=== PATIENT | female | born 1970 | race Caucasian/White ===

== ENCOUNTER 2017-06-23 01:02 | Inpatient (IN) | payer OTHER ==
[~2017-06-23] VITALS: Ht 160 cm; Wt 56.7 kg
[~2017-06-23 01:02] MED LIST: ACEBUTCAFT PO; ACET325 PO; ALEVE220 MG PO; ALPR.5 PO; AMIT10 PO; Ativan1 MG PO; CEPH500 PO; CIPR500 PO; CODBUTASA PO; CYCL10 PO; FAMO20 PO; HYDACE5; HYDACE5 PO; HYDACE5325 PO; HYDR1TAB94 PO; HYOS.125; IBUP600 PO; LEVFLO500 PO; LORA.5 PO; MAGCIT300 PO; MIRT30 PO; Mobic15 MG PO; NAPR550 PO; Norco 5-325 Ta1 EACH PO; OXYACE5T PO; PENVK500 PO; PHENA200 PO; PROM25 PO; Pain Relief500 MG PO; Percocet 10-321 EACH PO; Percocet 5-3251 EACH PO; RXCLIN PO; RXNAPNA550 PO; SERT100; SERT100 PO; SERT25 PO; SERT50; TRAZ50; TRIA80TC TOP
[2017-06-23 01:20] LABS: Calcium, Ionized (POC) 0.98 mmol/L (1.10-1.46); Chloride (POC) 111 mmol/L (98-108); Creatinine (POC) 0.8 mg/dL (0.6-1.0); Glucose (ISTAT POC) 166 mg/dL (70-99); Hemoglobin (POC) 10.9 g/dL (12.0-16.0); Potassium (POC) 3.6 mmol/L (3.5-5.5); Sodium (POC) 143 mmol/L (135-148); Total CO2 (POC) 20 mmol/L (21-32)
[2017-06-23 01:28] LABS: BASOPHILS ABSOLUTE AUTO 0.06 K/mm3 (0.00-0.23); BASOPHILS PERCENT AUTO 1 % (0-2); EOSINOPHILS ABSOLUTE AUTO 0.11 K/mm3 (0.00-0.68); EOSINOPHILS PERCENT AUTO 1 % (0-6); Hematocrit 40.4 % (33.0-51.0); Hemoglobin 13.2 g/dL (11.5-16.0); IMMATURE GRAN ABSOLUTE AUTO 0.07 K/mm3 (0.00-0.10); IMMATURE GRAN PERCENT AUTO 1 % (0-1); LYMPHOCYTES ABSOLUTE AUTO 5.01 K/mm3 (0.84-5.20); LYMPHOCYTES PERCENT AUTO 44 % (21-46); MONOCYTES ABSOLUTE AUTO 0.76 K/mm3 (0.16-1.47); MONOCYTES PERCENT AUTO 7 % (4-13); Mean Corpuscular HGB 31.3 pg (26.0-34.0); Mean Corpuscular HGB Conc 32.7 g/dL (31.5-36.5); Mean Corpuscular Volume 96 fL (80-100); Mean Platelet Volume 9.1 fL (9.1-12.4); NEUTROPHILS ABSOLUTE AUTO 5.36 K/mm3 (1.96-9.15); NEUTROPHILS PERCENT AUTO 47 % (41-73); Platelet Count 243 K/mm3 (150-400); RDW Coefficient Variation 14.1 % (11.7-14.2); RDW Standard Deviation 49.7 fL (35.1-46.3); Red Blood Cell Count 4.22 M/mm3 (3.80-5.20); White Blood Cell Count 11.37 K/mm3 (4.00-11.30)
[2017-06-23 01:43] LABS: International Normalized Ratio 1.07; Prothrombin Time Results 11.2 Sec (9.7-11.5)
[2017-06-23 01:44] LABS: Alanine Aminotransfer (ALT/SGP 18 U/L (12-78); Albumin, Blood 2.5 g/dL (3.4-5.0); Alk Phos 84 U/L (50-136); Anion Gap 7 mmol/L (6-16); Aspartate Aminotrans (AST/SGOT 18 U/L (12-37); Bilirubin, Total 0.2 mg/dL (0.1-1.0); Blood Urea Nitrogen 13 mg/dL (8-24); Bun/Creatinine Ratio 17.9 (12.0-20.0); CO2, Blood 23 mmol/L (21-32); Calcium, Blood 6.5 mg/dL (8.5-10.1); Chloride, Blood 116 mmol/L (98-108); Creatinine, Blood 0.73 mg/dL (0.40-1.00); Globulin, Blood 2.5 g/dL (2.2-4.0); Glomerular Filtration Rate >60 (60-); Glucose, Blood 166 mg/dL (70-99); Potassium, Blood 3.8 mmol/L (3.5-5.5); Sodium, Blood 146 mmol/L (136-145); Troponin I 0.218 ng/mL (0.000-0.040)
[2017-06-23] MEDS ORDERED: MELO7.5 PO (02:14)
[2017-06-23] MEDS ORDERED: CLON.5 PO (02:14)
[2017-06-23 05:07] LABS: BASOPHILS ABSOLUTE AUTO 0.06 K/mm3 (0.00-0.23); BASOPHILS PERCENT AUTO 0 % (0-2); EOSINOPHILS ABSOLUTE AUTO 0.03 K/mm3 (0.00-0.68); EOSINOPHILS PERCENT AUTO 0 % (0-6); Hematocrit 40.6 % (33.0-51.0); Hemoglobin 13.2 g/dL (11.5-16.0); IMMATURE GRAN ABSOLUTE AUTO 0.06 K/mm3 (0.00-0.10); IMMATURE GRAN PERCENT AUTO 0 % (0-1); LYMPHOCYTES ABSOLUTE AUTO 2.86 K/mm3 (0.84-5.20); LYMPHOCYTES PERCENT AUTO 21 % (21-46); MONOCYTES ABSOLUTE AUTO 0.47 K/mm3 (0.16-1.47); MONOCYTES PERCENT AUTO 3 % (4-13); Mean Corpuscular HGB 31.1 pg (26.0-34.0); Mean Corpuscular HGB Conc 32.5 g/dL (31.5-36.5); Mean Corpuscular Volume 96 fL (80-100); Mean Platelet Volume 9.4 fL (9.1-12.4); NEUTROPHILS ABSOLUTE AUTO 10.18 K/mm3 (1.96-9.15); NEUTROPHILS PERCENT AUTO 75 % (41-73); Platelet Count 236 K/mm3 (150-400); RDW Coefficient Variation 14.2 % (11.7-14.2); RDW Standard Deviation 50.6 fL (35.1-46.3); Red Blood Cell Count 4.24 M/mm3 (3.80-5.20); White Blood Cell Count 13.66 K/mm3 (4.00-11.30)
[2017-06-23 05:37] LABS: Anion Gap 7 mmol/L (6-16); Blood Urea Nitrogen 16 mg/dL (8-24); CO2, Blood 24 mmol/L (21-32); Calcium, Blood 7.8 mg/dL (8.5-10.1); Chloride, Blood 111 mmol/L (98-108); Glomerular Filtration Rate >60 (60-); Glucose, Blood 102 mg/dL (70-99); Sodium, Blood 142 mmol/L (136-145)
[2017-06-23] MEDS ORDERED: INDERAL XL120 MG PO (08:31)
[2017-06-23] MEDS ORDERED: MAPAP PM CAPLET1 TAB PO (08:31)
[2017-06-23] MEDS ORDERED: PRAZ2 PO (08:32)
[2017-06-23] MEDS ORDERED: Butalbital-Asa1 EAC1 PO (08:33)
[2017-06-24] MEDS ORDERED: ASPI81CH PO (10:12)
[2017-06-24] MEDS ORDERED: ATOR40TA PO (10:13)
[2017-06-24] MEDS ORDERED: CLOP75 PO (10:14)
[2017-06-24] MEDS ORDERED: Lisinopril2.5 MG PO (10:15)
[2017-06-24] MEDS ORDERED: Nicoderm Cq1 EAC1 TOP (10:17)
[2017-06-24] MEDS ORDERED: Lopressor 25 mg25 MG PO (10:18)
== END 2017-06-24 12:00 | disposition home or self-care (01) | DRG 247 ==
LOC: ER 01:02 → ICUW 01:48 → ICUE 02:12 → PCU 15:58
PROVIDERS: Emergency Medicine; Internal Medicine Interventional Cardiology
PROC: 027034Z Dilation of Coronary Artery, One Artery with Drug-eluting Intraluminal Device, Percutaneous Approach (ICD-10-PCS; principal; 2017-06-23)
PROC: 3E0234Z Introduction of Serum, Toxoid and Vaccine into Muscle, Percutaneous Approach (ICD-10-PCS; 2017-06-23)
PROC: 4A023N7 Measurement of Cardiac Sampling and Pressure, Left Heart, Percutaneous Approach (ICD-10-PCS; 2017-06-23)
PROC: B2111ZZ Fluoroscopy of Multiple Coronary Arteries using Low Osmolar Contrast (ICD-10-PCS; 2017-06-23)
DX: I21.19 ST elevation (STEMI) myocardial infarction involving other coronary artery of inferior wall (principal); I48.0 Paroxysmal atrial fibrillation; F17.210 Nicotine dependence, cigarettes, uncomplicated; F32.9 Major depressive disorder, single episode, unspecified; I10 Essential (primary) hypertension; Z23 Encounter for immunization; K58.9 Irritable bowel syndrome, unspecified; F41.9 Anxiety disorder, unspecified; I25.10 Atherosclerotic heart disease of native coronary artery without angina pectoris
CPT/HCPCS: 36415; 80047; 80048; 80053; 84484; 85014; 85025; 85610; 85730; 92978; 93005; 93010; 93306; 93454; 96374; 96375; 99152; 99153; 99285; C1725; C1753; C1760; C1769; C1874; C1894; C9606; J0461; J0610; J1265; J1644; J2060; J2250; J2405; J3010; J7030; Q2038; Q9967

== ENCOUNTER 2017-07-14 23:53 | Emergency (ER) | payer OTHER ==
[~2017-07-14] VITALS: Ht 160 cm; Wt 52.2 kg
[~2017-07-14 23:53] MED LIST changes: +ASPI81CH PO; +ATOR40TA PO; +Butalbital-Asa1 EAC1 PO; +CLON.5 PO; +CLOP75 PO; +INDERAL XL120 MG PO; +Lisinopril2.5 MG PO; +Lopressor 25 mg25 MG PO; +MAPAP PM CAPLET1 TAB PO; +MELO7.5 PO; +Nicoderm Cq1 EAC1 TOP; +PRAZ2 PO
[2017-07-15] MEDS ORDERED: PRAZ2 PO (00:18)
[2017-07-15 00:31] LABS: White Blood Cell Count 9.02 K/mm3 (4.00-11.30)
[2017-07-15 00:32] LABS: BASOPHILS ABSOLUTE AUTO 0.05 K/mm3 (0.00-0.23); BASOPHILS PERCENT AUTO 1 % (0-2); EOSINOPHILS ABSOLUTE AUTO 0.13 K/mm3 (0.00-0.68); EOSINOPHILS PERCENT AUTO 1 % (0-6); Hematocrit 38.2 % (33.0-51.0); Hemoglobin 13.1 g/dL (11.5-16.0); IMMATURE GRAN ABSOLUTE AUTO 0.04 K/mm3 (0.00-0.10); IMMATURE GRAN PERCENT AUTO 0 % (0-1); LYMPHOCYTES ABSOLUTE AUTO 3.09 K/mm3 (0.84-5.20); LYMPHOCYTES PERCENT AUTO 34 % (21-46); MONOCYTES ABSOLUTE AUTO 0.72 K/mm3 (0.16-1.47); MONOCYTES PERCENT AUTO 8 % (4-13); Mean Corpuscular HGB 31.2 pg (26.0-34.0); Mean Corpuscular HGB Conc 34.3 g/dL (31.5-36.5); Mean Corpuscular Volume 91 fL (80-100); Mean Platelet Volume 8.9 fL (9.1-12.4); NEUTROPHILS ABSOLUTE AUTO 4.99 K/mm3 (1.96-9.15); NEUTROPHILS PERCENT AUTO 55 % (41-73); Platelet Count 229 K/mm3 (150-400); RDW Coefficient Variation 13.1 % (11.7-14.2); RDW Standard Deviation 43.9 fL (35.1-46.3)
[2017-07-15 00:46] LABS: Alanine Aminotransfer (ALT/SGP 19 U/L (12-78); Albumin, Blood 3.5 g/dL (3.4-5.0); Alk Phos 111 U/L (50-136); Anion Gap 9 mmol/L (6-16); Aspartate Aminotrans (AST/SGOT 13 U/L (12-37); Bilirubin, Total 0.2 mg/dL (0.1-1.0); Blood Urea Nitrogen 23 mg/dL (8-24); Bun/Creatinine Ratio 34.3 (12.0-20.0); CO2, Blood 25 mmol/L (21-32); Calcium, Blood 8.4 mg/dL (8.5-10.1); Chloride, Blood 103 mmol/L (98-108); Creatinine, Blood 0.67 mg/dL (0.40-1.00); Globulin, Blood 3.4 g/dL (2.2-4.0); Glomerular Filtration Rate >60 (60-); Glucose, Blood 109 mg/dL (70-99); Potassium, Blood 3.5 mmol/L (3.5-5.5); Sodium, Blood 137 mmol/L (136-145); Total Protein, Blood 6.9 g/dL (6.4-8.2); Troponin I <0.015 ng/mL (0.000-0.040)
[2017-07-15] MEDS ORDERED: CLON.5 PO (04:17)
== END 2017-07-15 04:20 | disposition home or self-care (01) ==
LOC: ER 23:53
PROVIDERS: Emergency Medicine
DX: R07.9 Chest pain, unspecified (principal); F41.9 Anxiety disorder, unspecified; F32.9 Major depressive disorder, single episode, unspecified; I25.2 Old myocardial infarction; F17.200 Nicotine dependence, unspecified, uncomplicated; Z88.8 Allergy status to other drugs, medicaments and biological substances; Z79.899 Other long term (current) drug therapy; Z79.82 Long term (current) use of aspirin; Z95.5 Presence of coronary angioplasty implant and graft
CPT/HCPCS: 36415; 71046; 80053; 83690; 83880; 84484; 85025; 93005; 93010; 96361; 96374; 99283; J2405; J7030

== ENCOUNTER 2017-10-27 07:21 | Emergency (ER) | payer OTHER ==
[~2017-10-27] VITALS: Ht 160 cm; Wt 51.3 kg
[2017-10-27] MEDS ORDERED: PRAZ2 PO (08:12)
[2017-10-27] MEDS ORDERED: CYCL10 PO (09:08)
[2017-10-27] MEDS ORDERED: HYDR1TAB94 PO (09:08)
[2017-10-27] MEDS ORDERED: IBUP800 PO (09:08)
== END 2017-10-27 09:39 | disposition home or self-care (01) ==
LOC: ER 07:21
DX: S20.212A Contusion of left front wall of thorax, initial encounter (principal); F32.9 Major depressive disorder, single episode, unspecified; F41.9 Anxiety disorder, unspecified; F17.200 Nicotine dependence, unspecified, uncomplicated; Z88.8 Allergy status to other drugs, medicaments and biological substances; Z79.899 Other long term (current) drug therapy; Z79.82 Long term (current) use of aspirin; W20.8XXA Other cause of strike by thrown, projected or falling object, initial encounter
CPT/HCPCS: 71046; 71100

== ENCOUNTER 2018-01-03 12:26 | Emergency (ER) | payer OTHER ==
[~2018-01-03] VITALS: Ht 160 cm; Wt 49.4 kg
[~2018-01-03 12:26] MED LIST changes: +IBUP800 PO
[2018-01-03 13:05] LABS: BASOPHILS ABSOLUTE AUTO 0.02 K/mm3 (0.00-0.23); BASOPHILS PERCENT AUTO 0 % (0-2); EOSINOPHILS PERCENT AUTO 0 % (0-6); Hematocrit 46.5 % (33.0-51.0); Hemoglobin 16.3 g/dL (11.5-16.0); IMMATURE GRAN ABSOLUTE AUTO 0.04 K/mm3 (0.00-0.10); IMMATURE GRAN PERCENT AUTO 0 % (0-1); LYMPHOCYTES ABSOLUTE AUTO 2.44 K/mm3 (0.84-5.20); LYMPHOCYTES PERCENT AUTO 21 % (21-46); MONOCYTES ABSOLUTE AUTO 0.69 K/mm3 (0.16-1.47); MONOCYTES PERCENT AUTO 6 % (4-13); Mean Corpuscular HGB 31.9 pg (26.0-34.0); Mean Corpuscular HGB Conc 35.1 g/dL (31.5-36.5); Mean Corpuscular Volume 91 fL (80-100); Mean Platelet Volume 9.1 fL (9.1-12.4); NEUTROPHILS ABSOLUTE AUTO 8.52 K/mm3 (1.96-9.15); NEUTROPHILS PERCENT AUTO 73 % (41-73); Platelet Count 312 K/mm3 (150-400); RDW Coefficient Variation 13.2 % (11.7-14.2); RDW Standard Deviation 44.3 fL (35.1-46.3); Red Blood Cell Count 5.11 M/mm3 (3.80-5.20); White Blood Cell Count 11.71 K/mm3 (4.00-11.30)
[2018-01-03] MEDS ORDERED: AMIT25 PO (13:32)
[2018-01-03 13:33] LABS: Troponin I <0.015 ng/mL (0.000-0.040)
[2018-01-03 13:42] LABS: Alanine Aminotransfer (ALT/SGP 20 U/L (12-78); Albumin, Blood 4.4 g/dL (3.4-5.0); Albumin/Globulin Ratio 1.2 (0.8-1.8); Alk Phos 129 U/L (50-136); Anion Gap 17 mmol/L (6-16); Aspartate Aminotrans (AST/SGOT 18 U/L (12-37); Bilirubin, Total 0.5 mg/dL (0.1-1.0); Blood Urea Nitrogen 9 mg/dL (8-24); CO2, Blood 21 mmol/L (21-32); Calcium, Blood 9.7 mg/dL (8.5-10.1); Chloride, Blood 96 mmol/L (98-108); Globulin, Blood 3.7 g/dL (2.2-4.0); Glomerular Filtration Rate >60 (60-); Glucose, Blood 110 mg/dL (70-99); Sodium, Blood 134 mmol/L (136-145); Total Protein, Blood 8.1 g/dL (6.4-8.2)
[2018-01-03] MEDS ORDERED: Zofran4 MG PO (14:40)
[2018-01-04] MEDS ORDERED: SALONPAS PATCH1 EACH (23:21)
[2018-01-04] MEDS ORDERED: LIDO5TO TOP (23:22)
== END 2018-01-03 14:56 | disposition home or self-care (01) ==
LOC: ER 12:26
PROVIDERS: Physician Assistant
DX: A08.4 Viral intestinal infection, unspecified (principal); F41.0 Panic disorder [episodic paroxysmal anxiety]; I25.2 Old myocardial infarction; F32.9 Major depressive disorder, single episode, unspecified; F17.200 Nicotine dependence, unspecified, uncomplicated; Z79.899 Other long term (current) drug therapy; Z79.82 Long term (current) use of aspirin; Z79.01 Long term (current) use of anticoagulants
CPT/HCPCS: 71046; 80053; 84484; 85025; 93005; 93010; 96361; 96374; 96375; 96376; 99285-25; J2060; J2405; J7030

== ENCOUNTER 2018-01-04 22:56 | Inpatient (IN) | payer OTHER ==
[~2018-01-04] VITALS: Ht 160 cm; Wt 51.1 kg
[~2018-01-04 22:56] MED LIST changes: +AMIT25 PO; +Zofran4 MG PO
[2018-01-04] MEDS ORDERED: SALONPAS PATCH1 EACH (23:21)
[2018-01-04] MEDS ORDERED: LIDO5TO TOP (23:22)
[2018-01-04 23:47] LABS: BASOPHILS ABSOLUTE AUTO 0.03 K/mm3 (0.00-0.23); BASOPHILS PERCENT AUTO 0 % (0-2); EOSINOPHILS ABSOLUTE AUTO 0.03 K/mm3 (0.00-0.68); EOSINOPHILS PERCENT AUTO 0 % (0-6); Hematocrit 35.4 % (33.0-51.0); Hemoglobin 12.3 g/dL (11.5-16.0); IMMATURE GRAN ABSOLUTE AUTO 0.04 K/mm3 (0.00-0.10); IMMATURE GRAN PERCENT AUTO 1 % (0-1); LYMPHOCYTES ABSOLUTE AUTO 3.07 K/mm3 (0.84-5.20); LYMPHOCYTES PERCENT AUTO 39 % (21-46); MONOCYTES ABSOLUTE AUTO 0.57 K/mm3 (0.16-1.47); MONOCYTES PERCENT AUTO 7 % (4-13); Mean Corpuscular HGB 32.5 pg (26.0-34.0); Mean Corpuscular HGB Conc 34.7 g/dL (31.5-36.5); Mean Corpuscular Volume 94 fL (80-100); Mean Platelet Volume 9.2 fL (9.1-12.4); NEUTROPHILS ABSOLUTE AUTO 4.22 K/mm3 (1.96-9.15); NEUTROPHILS PERCENT AUTO 53 % (41-73); Platelet Count 199 K/mm3 (150-400); RDW Coefficient Variation 13.5 % (11.7-14.2); RDW Standard Deviation 45.7 fL (35.1-46.3); Red Blood Cell Count 3.78 M/mm3 (3.80-5.20); White Blood Cell Count 7.96 K/mm3 (4.00-11.30)
[2018-01-05 00:03] LABS: Alanine Aminotransfer (ALT/SGP 16 U/L (12-78); Albumin/Globulin Ratio 1.2 (0.8-1.8); Alk Phos 86 U/L (50-136); Anion Gap 10 mmol/L (6-16); Aspartate Aminotrans (AST/SGOT 13 U/L (12-37); Bilirubin, Total 0.4 mg/dL (0.1-1.0); Blood Urea Nitrogen 10 mg/dL (8-24); Bun/Creatinine Ratio 12.8 (12.0-20.0); CO2, Blood 24 mmol/L (21-32); Chloride, Blood 107 mmol/L (98-108); Creatinine, Blood 0.78 mg/dL (0.40-1.00); Globulin, Blood 2.5 g/dL (2.2-4.0); Glomerular Filtration Rate >60 (60-); Glucose, Blood 174 mg/dL (70-99); Sodium, Blood 141 mmol/L (136-145); Troponin I <0.015 ng/mL (0.000-0.040)
[2018-01-05 00:04] LABS: Calcium, Blood 7.4 mg/dL (8.5-10.1); Total Protein, Blood 5.5 g/dL (6.4-8.2)
[2018-01-05 01:24] LABS: Source, Urine Clean Catch
[2018-01-05 01:33] LABS: Bilirubin, Urine Neg (Neg); Blood, Urine 2+ (Neg); Glucose Qualitative, Urine Neg (Neg); Ketones, Urine 1+ (Neg); Leukocyte Esterase, Urine 1+ (Neg); Nitrite, Urine Neg (Neg); Protein, Urine 1+ (Neg); Specific Gravity, Urine 1.015 (1.003-1.022); Urobilinogen, Urine NORM (Normal)
[2018-01-05 01:34] LABS: Appearance, Urine Clear (Clear); Color, Urine Yellow (P-Yellow)
[2018-01-05 01:40] LABS: Bacteria Mod /hpf; Red Blood Cells, Urine 0-2 /hpf (0-2); Squamous Epithelial Cells Many /hpf (Few)
[2018-01-05 01:41] LABS: Amorphous Light (0-Heavy); Hyaline Casts 0-2 /lpf (0-2)
[2018-01-05 03:18] LABS: BASOPHILS ABSOLUTE AUTO 0.03 K/mm3 (0.00-0.23); BASOPHILS PERCENT AUTO 0 % (0-2); EOSINOPHILS ABSOLUTE AUTO 0.01 K/mm3 (0.00-0.68); EOSINOPHILS PERCENT AUTO 0 % (0-6); Hematocrit 33.3 % (33.0-51.0); Hemoglobin 11.6 g/dL (11.5-16.0); IMMATURE GRAN ABSOLUTE AUTO 0.02 K/mm3 (0.00-0.10); IMMATURE GRAN PERCENT AUTO 0 % (0-1); LYMPHOCYTES ABSOLUTE AUTO 2.46 K/mm3 (0.84-5.20); LYMPHOCYTES PERCENT AUTO 25 % (21-46); MONOCYTES ABSOLUTE AUTO 0.54 K/mm3 (0.16-1.47); MONOCYTES PERCENT AUTO 6 % (4-13); Mean Corpuscular HGB 32.7 pg (26.0-34.0); Mean Corpuscular HGB Conc 34.8 g/dL (31.5-36.5); Mean Corpuscular Volume 94 fL (80-100); Mean Platelet Volume 8.8 fL (9.1-12.4); NEUTROPHILS ABSOLUTE AUTO 6.67 K/mm3 (1.96-9.15); NEUTROPHILS PERCENT AUTO 69 % (41-73); Platelet Count 180 K/mm3 (150-400); RDW Coefficient Variation 13.5 % (11.7-14.2); RDW Standard Deviation 46.1 fL (35.1-46.3); Red Blood Cell Count 3.55 M/mm3 (3.80-5.20); White Blood Cell Count 9.73 K/mm3 (4.00-11.30)
[2018-01-05 03:33] LABS: Anion Gap 8 mmol/L (6-16); Blood Urea Nitrogen 10 mg/dL (8-24); Bun/Creatinine Ratio 15.3 (12.0-20.0); CO2, Blood 21 mmol/L (21-32); Chloride, Blood 115 mmol/L (98-108); Creatinine, Blood 0.65 mg/dL (0.40-1.00); Glomerular Filtration Rate >60 (60-); Glucose, Blood 103 mg/dL (70-99); Potassium, Blood 3.7 mmol/L (3.5-5.5); Sodium, Blood 144 mmol/L (136-145)
[2018-01-06 05:10] LABS: BASOPHILS ABSOLUTE AUTO 0.03 K/mm3 (0.00-0.23); BASOPHILS PERCENT AUTO 0 % (0-2); EOSINOPHILS ABSOLUTE AUTO 0.05 K/mm3 (0.00-0.68); EOSINOPHILS PERCENT AUTO 1 % (0-6); Hemoglobin 11.1 g/dL (11.5-16.0); IMMATURE GRAN ABSOLUTE AUTO 0.01 K/mm3 (0.00-0.10); IMMATURE GRAN PERCENT AUTO 0 % (0-1); LYMPHOCYTES PERCENT AUTO 50 % (21-46); MONOCYTES ABSOLUTE AUTO 0.36 K/mm3 (0.16-1.47); MONOCYTES PERCENT AUTO 5 % (4-13); Mean Corpuscular HGB 32.3 pg (26.0-34.0); Mean Corpuscular HGB Conc 33.6 g/dL (31.5-36.5); Mean Corpuscular Volume 96 fL (80-100); Mean Platelet Volume 9.4 fL (9.1-12.4); NEUTROPHILS ABSOLUTE AUTO 3.12 K/mm3 (1.96-9.15); NEUTROPHILS PERCENT AUTO 44 % (41-73); Platelet Count 161 K/mm3 (150-400); RDW Coefficient Variation 14.2 % (11.7-14.2); RDW Standard Deviation 49.7 fL (35.1-46.3); Red Blood Cell Count 3.44 M/mm3 (3.80-5.20); White Blood Cell Count 7.17 K/mm3 (4.00-11.30)
[2018-01-06 05:39] LABS: Anion Gap 8 mmol/L (6-16); Blood Urea Nitrogen 6 mg/dL (8-24); Bun/Creatinine Ratio 9.6 (12.0-20.0); CO2, Blood 21 mmol/L (21-32); Calcium, Blood 7.5 mg/dL (8.5-10.1); Chloride, Blood 115 mmol/L (98-108); Creatinine, Blood 0.62 mg/dL (0.40-1.00); Glomerular Filtration Rate >60 (60-); Glucose, Blood 71 mg/dL (70-99); Potassium, Blood 4.6 mmol/L (3.5-5.5); Sodium, Blood 144 mmol/L (136-145)
[2018-01-06] MEDS ORDERED: CYCL10 PO (15:40)
[2018-01-06] MEDS ORDERED: Esgic Tablet1 EACH PO (15:40)
[2018-01-07] MEDS ORDERED: CEPH500 PO (12:49)
[2018-01-07] MEDS ORDERED: OXYC5 PO (12:49)
== END 2018-01-07 14:25 | disposition home or self-care (01) | DRG 690 ==
LOC: ER 22:56 → PCU 01-05 02:32 → MEDS 01-06 14:43
PROVIDERS: Emergency Medicine; Family Medicine; Internal Medicine
DX: N39.0 Urinary tract infection, site not specified (principal); I10 Essential (primary) hypertension; R55 Syncope and collapse; E86.0 Dehydration; F32.9 Major depressive disorder, single episode, unspecified; E87.6 Hypokalemia; I95.9 Hypotension, unspecified; F41.9 Anxiety disorder, unspecified; F17.210 Nicotine dependence, cigarettes, uncomplicated; Z88.6 Allergy status to analgesic agent; Z88.5 Allergy status to narcotic agent; Z88.8 Allergy status to other drugs, medicaments and biological substances; Z79.02 Long term (current) use of antithrombotics/antiplatelets; Z79.899 Other long term (current) drug therapy; I25.2 Old myocardial infarction
CPT/HCPCS: 36415; 80048; 80053; 81001; 83605; 84484; 85025; 87086; 93005; 93010; 96360; 96361; 99285-25; J0696; J3480; J7030; J7050

== ENCOUNTER 2018-05-04 14:38 | Emergency (ER) | payer OTHER ==
[~2018-05-04] VITALS: Ht 160 cm; Wt 49.0 kg
[~2018-05-04 14:38] MED LIST changes: +Esgic Tablet1 EACH PO; +LIDO5TO TOP; +OXYC5 PO; +SALONPAS PATCH1 EACH
[2018-05-04 15:08] LABS: BASOPHILS ABSOLUTE AUTO 0.03 K/mm3 (0.00-0.23); BASOPHILS PERCENT AUTO 0 % (0-2); EOSINOPHILS ABSOLUTE AUTO 0.02 K/mm3 (0.00-0.68); EOSINOPHILS PERCENT AUTO 0 % (0-6); Hematocrit 43.9 % (33.0-51.0); IMMATURE GRAN ABSOLUTE AUTO 0.04 K/mm3 (0.00-0.10); IMMATURE GRAN PERCENT AUTO 1 % (0-1); LYMPHOCYTES ABSOLUTE AUTO 1.75 K/mm3 (0.84-5.20); LYMPHOCYTES PERCENT AUTO 21 % (21-46); MONOCYTES ABSOLUTE AUTO 0.39 K/mm3 (0.16-1.47); MONOCYTES PERCENT AUTO 5 % (4-13); Mean Corpuscular HGB 32.4 pg (26.0-34.0); Mean Corpuscular HGB Conc 34.2 g/dL (31.5-36.5); Mean Corpuscular Volume 95 fL (80-100); Mean Platelet Volume 9.3 fL (9.1-12.4); NEUTROPHILS ABSOLUTE AUTO 6.14 K/mm3 (1.96-9.15); NEUTROPHILS PERCENT AUTO 73 % (41-73); Platelet Count 239 K/mm3 (150-400); RDW Coefficient Variation 13.2 % (11.7-14.2); RDW Standard Deviation 45.9 fL (35.1-46.3); Red Blood Cell Count 4.63 M/mm3 (3.80-5.20); White Blood Cell Count 8.37 K/mm3 (4.00-11.30)
[2018-05-04 15:30] LABS: Alanine Aminotransfer (ALT/SGP 20 U/L (12-78); Albumin, Blood 3.8 g/dL (3.4-5.0); Albumin/Globulin Ratio 1.2 (0.8-1.8); Alk Phos 119 U/L (50-136); Anion Gap 8 mmol/L (6-16); Aspartate Aminotrans (AST/SGOT 14 U/L (12-37); Bilirubin, Total 0.3 mg/dL (0.1-1.0); Blood Urea Nitrogen 4 mg/dL (8-24); Bun/Creatinine Ratio 6.1 (12.0-20.0); CO2, Blood 27 mmol/L (21-32); Calcium, Blood 8.6 mg/dL (8.5-10.1); Chloride, Blood 106 mmol/L (98-108); Creatinine, Blood 0.65 mg/dL (0.40-1.00); Globulin, Blood 3.1 g/dL (2.2-4.0); Glomerular Filtration Rate >60 (60-); Glucose, Blood 116 mg/dL (70-99); Potassium, Blood 3.5 mmol/L (3.5-5.5); Sodium, Blood 141 mmol/L (136-145); Total Protein, Blood 6.9 g/dL (6.4-8.2); Troponin I <0.015 ng/mL (0.000-0.040)
[2018-05-04] MEDS ORDERED: BACLOFEN (16:22)
[2018-05-04] MEDS ORDERED: BACL10 (16:23)
== END 2018-05-04 18:53 | disposition home or self-care (01) ==
LOC: ER 14:38
PROVIDERS: Physician Assistant
DX: F41.9 Anxiety disorder, unspecified (principal); R07.9 Chest pain, unspecified; F32.9 Major depressive disorder, single episode, unspecified; G43.909 Migraine, unspecified, not intractable, without status migrainosus; F17.200 Nicotine dependence, unspecified, uncomplicated; I25.2 Old myocardial infarction; Z79.899 Other long term (current) drug therapy
CPT/HCPCS: 71046; 80053; 84484; 85025; 93005; 93010; 96374; 96375; 99285-25; J1885; J2060; J2270; J2405

== ENCOUNTER 2018-09-06 23:05 | Emergency (ER) | payer OTHER ==
[~2018-09-06] VITALS: Ht 160 cm; Wt 47.2 kg
[~2018-09-06 23:05] MED LIST changes: +BACL10; +BACLOFEN
[2018-09-06] MEDS ORDERED: Lisinopril2.5 MG PO (23:22)
[2018-09-06] MEDS ORDERED: PRAZ2 PO (23:23)
[2018-09-06] MEDS ORDERED: BUTALB-ACETAMI1 EAC3 PO (23:24)
[2018-09-06] MEDS ORDERED: BACL20 PO (23:25)
[2018-09-06] MEDS ORDERED: CLON.5 PO ×2 (23:25→23:26)
[2018-09-06] MEDS ORDERED: Tylenol325 MG PO (23:26)
[2018-09-06 23:27] LABS: BASOPHILS ABSOLUTE AUTO 0.04 K/mm3 (0.00-0.23); BASOPHILS PERCENT AUTO 1 % (0-2); EOSINOPHILS ABSOLUTE AUTO 0.06 K/mm3 (0.00-0.68); EOSINOPHILS PERCENT AUTO 1 % (0-6); Hematocrit 41.8 % (33.0-51.0); IMMATURE GRAN ABSOLUTE AUTO 0.02 K/mm3 (0.00-0.10); IMMATURE GRAN PERCENT AUTO 0 % (0-1); LYMPHOCYTES ABSOLUTE AUTO 3.29 K/mm3 (0.84-5.20); LYMPHOCYTES PERCENT AUTO 38 % (21-46); MONOCYTES PERCENT AUTO 6 % (4-13); Mean Corpuscular HGB 32.8 pg (26.0-34.0); Mean Corpuscular HGB Conc 33.5 g/dL (31.5-36.5); Mean Corpuscular Volume 98 fL (80-100); Mean Platelet Volume 9.5 fL (9.1-12.4); NEUTROPHILS ABSOLUTE AUTO 4.65 K/mm3 (1.96-9.15); NEUTROPHILS PERCENT AUTO 54 % (41-73); Platelet Count 204 K/mm3 (150-400); RDW Coefficient Variation 13.5 % (11.7-14.2); RDW Standard Deviation 48.7 fL (35.1-46.3); Red Blood Cell Count 4.27 M/mm3 (3.80-5.20); White Blood Cell Count 8.56 K/mm3 (4.00-11.30)
[2018-09-06] MEDS ORDERED: AMIT25 PO (23:27)
[2018-09-06 23:42] LABS: Alanine Aminotransfer (ALT/SGP 20 U/L (12-78); Albumin, Blood 3.4 g/dL (3.4-5.0); Albumin/Globulin Ratio 1.2 (0.8-1.8); Alk Phos 119 U/L (50-136); Anion Gap 8 mmol/L (6-16); Aspartate Aminotrans (AST/SGOT 14 U/L (12-37); Bilirubin, Total 0.2 mg/dL (0.1-1.0); Blood Urea Nitrogen 8 mg/dL (8-24); Bun/Creatinine Ratio 12.6 (12.0-20.0); CO2, Blood 27 mmol/L (21-32); Calcium, Blood 8.6 mg/dL (8.5-10.1); Chloride, Blood 106 mmol/L (98-108); Creatinine, Blood 0.64 mg/dL (0.40-1.00); Globulin, Blood 2.9 g/dL (2.2-4.0); Glomerular Filtration Rate >60 (60-); Glucose, Blood 141 mg/dL (70-99); Potassium, Blood 3.6 mmol/L (3.5-5.5); Sodium, Blood 141 mmol/L (136-145); Total Protein, Blood 6.3 g/dL (6.4-8.2); Troponin I <0.015 ng/mL (0.000-0.040)
== END 2018-09-07 01:25 | disposition home or self-care (01) ==
LOC: ER 23:05
PROVIDERS: Emergency Medicine
DX: R51 Headache (principal); R07.9 Chest pain, unspecified; Z88.8 Allergy status to other drugs, medicaments and biological substances; Z88.5 Allergy status to narcotic agent; Z79.899 Other long term (current) drug therapy; F32.9 Major depressive disorder, single episode, unspecified; F41.9 Anxiety disorder, unspecified; I25.2 Old myocardial infarction; F17.210 Nicotine dependence, cigarettes, uncomplicated
CPT/HCPCS: 71046; 80053; 84484; 85025; 93005; 93010; 96374; 96375; 99284-25; J1100; J1200; J1885; J2765; J3010

== ENCOUNTER 2018-12-22 11:53 | Emergency (ER) | payer OTHER ==
[~2018-12-22] VITALS: Ht 160 cm; Wt 44.0 kg
[~2018-12-22 11:53] MED LIST changes: +BACL20 PO; +BUTALB-ACETAMI1 EAC3 PO; +Tylenol325 MG PO
[2018-12-22 12:29] LABS: BASOPHILS ABSOLUTE AUTO 0.04 K/mm3 (0.00-0.23); BASOPHILS PERCENT AUTO 0 % (0-2); EOSINOPHILS ABSOLUTE AUTO 0.04 K/mm3 (0.00-0.68); EOSINOPHILS PERCENT AUTO 0 % (0-6); Hematocrit 42.7 % (33.0-51.0); Hemoglobin 14.5 g/dL (11.5-16.0); IMMATURE GRAN ABSOLUTE AUTO 0.04 K/mm3 (0.00-0.10); IMMATURE GRAN PERCENT AUTO 0 % (0-1); LYMPHOCYTES ABSOLUTE AUTO 3.16 K/mm3 (0.84-5.20); LYMPHOCYTES PERCENT AUTO 33 % (21-46); MONOCYTES ABSOLUTE AUTO 0.51 K/mm3 (0.16-1.47); MONOCYTES PERCENT AUTO 5 % (4-13); Mean Corpuscular HGB 32.7 pg (26.0-34.0); Mean Corpuscular Volume 96 fL (80-100); Mean Platelet Volume 9.2 fL (9.1-12.4); NEUTROPHILS ABSOLUTE AUTO 5.88 K/mm3 (1.96-9.15); NEUTROPHILS PERCENT AUTO 61 % (41-73); Platelet Count 264 K/mm3 (150-400); RDW Coefficient Variation 14.4 % (11.7-14.2); RDW Standard Deviation 50.8 fL (35.1-46.3); Red Blood Cell Count 4.44 M/mm3 (3.80-5.20); White Blood Cell Count 9.67 K/mm3 (4.00-11.30)
[2018-12-22 12:52] LABS: Alanine Aminotransfer (ALT/SGP 26 U/L (12-78); Albumin, Blood 3.8 g/dL (3.4-5.0); Albumin/Globulin Ratio 1.1 (0.8-1.8); Alk Phos 142 U/L (50-136); Anion Gap 6 mmol/L (6-16); Aspartate Aminotrans (AST/SGOT 28 U/L (12-37); Bilirubin, Total 0.3 mg/dL (0.1-1.0); Blood Urea Nitrogen 8 mg/dL (8-24); CO2, Blood 26 mmol/L (21-32); Chloride, Blood 110 mmol/L (98-108); Creatinine, Blood 0.67 mg/dL (0.40-1.00); Globulin, Blood 3.4 g/dL (2.2-4.0); Glomerular Filtration Rate >60 (60-); Glucose, Blood 107 mg/dL (70-99); Potassium, Blood 3.8 mmol/L (3.5-5.5); Sodium, Blood 142 mmol/L (136-145); Total Protein, Blood 7.2 g/dL (6.4-8.2); Troponin I <0.015 ng/mL (0.000-0.040)
[2018-12-22] MEDS ORDERED: IBUP600 PO (14:23)
[2018-12-22] MEDS ORDERED: Norco 5-325 Ta1 EACH PO (14:23)
== END 2018-12-22 14:39 | disposition home or self-care (01) ==
LOC: ER 11:53
PROVIDERS: Physician Assistant
DX: R27.0 Ataxia, unspecified (principal); R29.6 Repeated falls; I10 Essential (primary) hypertension; F43.10 Post-traumatic stress disorder, unspecified; F41.9 Anxiety disorder, unspecified; F32.9 Major depressive disorder, single episode, unspecified; F17.200 Nicotine dependence, unspecified, uncomplicated; Z88.8 Allergy status to other drugs, medicaments and biological substances; Z79.899 Other long term (current) drug therapy; Z79.02 Long term (current) use of antithrombotics/antiplatelets
CPT/HCPCS: 36415; 70470; 71046; 72125; 80053; 84484; 85025; 93005; 93010; 96374-59; 96375-59; 99284-25; J1170; J1885; Q9967

== ENCOUNTER 2021-04-23 02:24 | Emergency (ER) | payer OTHER ==
[~2021-04-23] VITALS: Ht 162.6 cm; Wt 51.7 kg
== END 2021-04-23 06:46 | disposition home or self-care (01) ==
LOC: ER 02:24
DX: S01.81XA Laceration without foreign body of other part of head, initial encounter (principal); S60.512A Abrasion of left hand, initial encounter; G43.909 Migraine, unspecified, not intractable, without status migrainosus; I25.2 Old myocardial infarction; Z23 Encounter for immunization; F17.210 Nicotine dependence, cigarettes, uncomplicated; Z88.8 Allergy status to other drugs, medicaments and biological substances; Z79.899 Other long term (current) drug therapy; W18.30XA Fall on same level, unspecified, initial encounter
CPT/HCPCS: 12014; 70450; 70486; 72125; 73130; 90471; 90714; 99284-25; A9270; L0160

== ENCOUNTER → 2021-06-16 | Outpatient (CLI) | payer OTHER | LOC: LAB SHORT 12:05 → LAB 12:05 | DX: R35.0 Frequency of micturition (principal) | CPT/HCPCS: 87077; 87086; 87186 ==

== ENCOUNTER 2021-07-04 20:16 | Emergency (ER) | payer OTHER ==
[~2021-07-04] VITALS: Ht 160 cm; Wt 53.5 kg
[2021-07-04 21:01] LABS: BASOPHILS ABSOLUTE AUTO 0.03 K/mm3 (0.00-0.23); BASOPHILS PERCENT AUTO 0 % (0-2); EOSINOPHILS ABSOLUTE AUTO 0.04 K/mm3 (0.00-0.68); EOSINOPHILS PERCENT AUTO 0 % (0-6); Hematocrit 47.6 % (33.0-51.0); IMMATURE GRAN ABSOLUTE AUTO 0.04 K/mm3 (0.00-0.10); IMMATURE GRAN PERCENT AUTO 0 % (0-1); LYMPHOCYTES ABSOLUTE AUTO 3.08 K/mm3 (0.84-5.20); LYMPHOCYTES PERCENT AUTO 27 % (21-46); MONOCYTES ABSOLUTE AUTO 0.56 K/mm3 (0.16-1.47); MONOCYTES PERCENT AUTO 5 % (4-13); Mean Corpuscular HGB 31.5 pg (26.0-34.0); Mean Corpuscular HGB Conc 33.6 g/dL (31.5-36.5); Mean Corpuscular Volume 94 fL (80-100); Mean Platelet Volume 9.7 fL (9.1-12.4); NEUTROPHILS ABSOLUTE AUTO 7.65 K/mm3 (1.96-9.15); NEUTROPHILS PERCENT AUTO 67 % (41-73); Platelet Count 228 K/mm3 (150-400); RDW Coefficient Variation 14.5 % (11.7-14.2); RDW Standard Deviation 49.8 fL (35.1-46.3); Red Blood Cell Count 5.08 M/mm3 (3.80-5.20)
[2021-07-04 21:39] LABS: Alanine Aminotransfer (ALT/SGP 19 U/L (12-78); Albumin, Blood 3.7 g/dL (3.4-5.0); Albumin/Globulin Ratio 1.1 (0.8-1.8); Alk Phos 161 U/L (50-136); Anion Gap 8 mmol/L (6-16); Aspartate Aminotrans (AST/SGOT 18 U/L (12-37); Bilirubin, Total 0.2 mg/dL (0.1-1.0); Blood Urea Nitrogen 17 mg/dL (8-24); Bun/Creatinine Ratio 33.7 (12.0-20.0); CO2, Blood 26 mmol/L (21-32); Calcium, Blood 8.7 mg/dL (8.5-10.1); Chloride, Blood 106 mmol/L (98-108); Creatinine, Blood 0.51 mg/dL (0.40-1.00); Globulin, Blood 3.3 g/dL (2.2-4.0); Glomerular Filtration Rate >60 (60-); Glucose, Blood 120 mg/dL (70-99); Potassium, Blood 3.3 mmol/L (3.5-5.5); Sodium, Blood 140 mmol/L (136-145)
[2021-07-04 23:26] LABS: Source, Urine Clean Catch
[2021-07-04 23:28] LABS: Bilirubin, Urine Neg (Neg); Blood, Urine 3+ (Neg); Glucose Qualitative, Urine Neg (Neg); Ketones, Urine 2+ (Neg); Leukocyte Esterase, Urine 2+ (Neg); Nitrite, Urine Neg (Neg); Protein, Urine 1+ (Neg); Urobilinogen, Urine NORM (Normal)
[2021-07-05 00:34] LABS: Appearance, Urine Hazy (Clear); Color, Urine Yellow (P-Yellow)
[2021-07-05 00:46] LABS: Bacteria Few /hpf
[2021-07-05 00:47] LABS: Squamous Epithelial Cells Mod /hpf (Few)
[2021-07-05] MEDS ORDERED: CEPH500 PO (01:13)
[2021-10-04] MEDS ORDERED: ALBU90OI INH (01:32)
== END 2021-07-05 01:45 | disposition home or self-care (01) ==
LOC: ER 20:16
PROVIDERS: Physician Assistant
DX: N39.0 Urinary tract infection, site not specified (principal); E86.0 Dehydration; G43.909 Migraine, unspecified, not intractable, without status migrainosus; I25.2 Old myocardial infarction; F17.210 Nicotine dependence, cigarettes, uncomplicated; Z79.899 Other long term (current) drug therapy
CPT/HCPCS: 36415; 71045; 80053; 81001; 85025; 87086; 93005; 93010; 99285-25; A9270; J7030

== ENCOUNTER → 2021-07-08 | Outpatient (CLI) | payer OTHER ==
[2021-07-08 12:19] LABS: U Amphetamine Screen Not Detected; U Barbituate Screen Not Detected; U Benzodiazapine Screen Not Detected; U Buprenorphine Screen Not Detected; U Cannabinoids Screen Not Detected; U Cocaine Screen Not Detected; U Methadone Screen Not Detected; U Methamphetamine Screen Not Detected; U Opiates Screen DETECTED; U Oxycodone Screen Not Detected; U Phencyclidine Screen Not Detected; U Propoxyphene Screen Not Detected
== END | disposition home or self-care (01) ==
LOC: LAB SHORT 11:03 → LAB 11:03
PROVIDERS: Nurse Practitioner Psychiatric/Mental Health
DX: F41.1 Generalized anxiety disorder (principal)

== ENCOUNTER → 2021-09-26 | Outpatient (CLI) | payer OTHER ==
[2021-09-29 16:18] LABS: Adenovirus F 40/41 Not Detected (NOT DETECT); Astrovirus Not Detected (NOT DETECT); Campylobacter Sp Not Detected (NOT DETECT); Cryptosporidium Not Detected (NOT DETECT); Cyclospora Cayetanensis Not Detected (NOT DETECT); E. Coli O157 Not Detected (NOT DETECT); Entamoeba Histolytica Not Detected (NOT DETECT); Enteroaggregative E. coli-EAEC Not Detected (NOT DETECT); Enteropathogenic E. coli-EPEC Not Detected (NOT DETECT); Enterotoxigenic E. coli-ETEC Not Detected (NOT DETECT); Giardia Lamblia Not Detected (NOT DETECT); Norovirus GI/GII Not Detected (NOT DETECT); Plesiomonas Shigelloides Not Detected (NOT DETECT); Rotavirus A Not Detected (NOT DETECT); Salmonella Sp Not Detected (NOT DETECT); Sapovirus Not Detected (NOT DETECT); Shiga Toxin-prod E. coli-STEC Not Detected (NOT DETECT); Shigella/Enteroin E. coli-EIEC Not Detected (NOT DETECT); Vibrio Cholerae Not Detected (NOT DETECT); Vibrio Sp Not Detected (NOT DETECT); Yersinia Enterocolitica Not Detected (NOT DETECT)
== END | disposition home or self-care (01) ==
LOC: LAB SHORT 16:00
PROVIDERS: Family Medicine
DX: K52.9 Noninfective gastroenteritis and colitis, unspecified (principal)
CPT/HCPCS: 87507

== ENCOUNTER 2021-10-02 11:42 | Emergency (ER) | payer OTHER ==
[~2021-10-02] VITALS: Ht 160 cm; Wt 51.7 kg
[2021-10-04] MEDS ORDERED: ALBU90OI INH (01:32)
== END 2021-10-02 13:52 | disposition home or self-care (01) ==
LOC: ER 11:42
DX: J06.9 Acute upper respiratory infection, unspecified (principal); I25.2 Old myocardial infarction; F17.210 Nicotine dependence, cigarettes, uncomplicated; Z20.822 Contact with and (suspected) exposure to COVID-19; Z79.899 Other long term (current) drug therapy; Z95.5 Presence of coronary angioplasty implant and graft
CPT/HCPCS: 99283

== ENCOUNTER 2022-02-04 16:03 | Emergency (ER) | payer OTHER ==
[~2022-02-04] VITALS: Ht 160 cm; Wt 49.9 kg
[~2022-02-04 16:03] MED LIST changes: +ALBU90OI INH
[2022-02-04] MEDS ORDERED: Norco 5-325 Ta1 EACH PO (16:30)
[2022-02-04] MEDS ORDERED: Roxicodone5 MG PO (16:53)
== END 2022-02-04 16:40 | disposition home or self-care (01) ==
LOC: ER 16:03
DX: M43.6 Torticollis (principal); G43.909 Migraine, unspecified, not intractable, without status migrainosus; F17.210 Nicotine dependence, cigarettes, uncomplicated; Z88.6 Allergy status to analgesic agent; Z88.8 Allergy status to other drugs, medicaments and biological substances; Z79.899 Other long term (current) drug therapy
CPT/HCPCS: 99283; A9270

== ENCOUNTER 2022-07-21 14:26 | Inpatient (IN) | payer OTHER ==
[~2022-07-21] VITALS: Ht 160 cm; Wt 52.2 kg
[~2022-07-21 14:26] MED LIST changes: -BUTALB-ACETAMI1 EAC3 PO; +KLOR-CON 1010 ME1 PO; +Roxicodone5 MG PO
[2022-07-21 16:31] LABS: BASOPHILS ABSOLUTE AUTO 0.02 K/mm3 (0.00-0.23); BASOPHILS PERCENT AUTO 0 % (0-2); EOSINOPHILS PERCENT AUTO 0 % (0-6); Hematocrit 44.9 % (33.0-51.0); Hemoglobin 15.1 g/dL (11.5-16.0); IMMATURE GRAN ABSOLUTE AUTO 0.08 K/mm3 (0.00-0.10); IMMATURE GRAN PERCENT AUTO 1 % (0-1); LYMPHOCYTES ABSOLUTE AUTO 1.95 K/mm3 (0.84-5.20); LYMPHOCYTES PERCENT AUTO 12 % (21-46); MONOCYTES ABSOLUTE AUTO 1.03 K/mm3 (0.16-1.47); MONOCYTES PERCENT AUTO 6 % (4-13); Mean Corpuscular HGB 32.3 pg (26.0-34.0); Mean Corpuscular HGB Conc 33.6 g/dL (31.5-36.5); Mean Corpuscular Volume 96 fL (80-100); Mean Platelet Volume 9.4 fL (9.1-12.4); NEUTROPHILS ABSOLUTE AUTO 13.32 K/mm3 (1.96-9.15); NEUTROPHILS PERCENT AUTO 81 % (41-73); Platelet Count 234 K/mm3 (150-400); RDW Coefficient Variation 13.6 % (11.7-14.2); RDW Standard Deviation 48.5 fL (35.1-46.3); Red Blood Cell Count 4.67 M/mm3 (3.80-5.20)
[2022-07-21 16:53] LABS: Albumin, Blood 4.1 g/dL (3.4-5.0); Albumin/Globulin Ratio 1.2 (0.8-1.8); Bilirubin, Total 0.4 mg/dL (0.1-1.0); Bun/Creatinine Ratio 25.6 (12.0-20.0); Calcium, Blood 9.3 mg/dL (8.5-10.1); Creatinine, Blood 0.63 mg/dL (0.40-1.00); Globulin, Blood 3.3 g/dL (2.2-4.0); Potassium, Blood 3.4 mmol/L (3.5-5.5); Total Protein, Blood 7.4 g/dL (6.4-8.2)
[2022-07-21 18:02] LABS: Source, Urine Clean Catch
[2022-07-21 18:08] LABS: Appearance, Urine Clear (Clear); Bilirubin, Urine Neg (Neg); Blood, Urine 2+ (Neg); Color, Urine Yellow (P-Yellow); Glucose Qualitative, Urine Neg (Neg); Ketones, Urine 4+ (Neg); Leukocyte Esterase, Urine Neg (Neg); Nitrite, Urine Neg (Neg); Protein, Urine 2+ (Neg); Specific Gravity, Urine 1.025 (1.003-1.022); Urobilinogen, Urine NORM (Normal)
[2022-07-21 18:16] LABS: Bacteria Few /hpf; Red Blood Cells, Urine 0-2 /hpf (0-2); Squamous Epithelial Cells Rare /hpf (Few); White Blood Cells, Urine 0-2 /hpf (0-5)
[2022-07-21 18:17] LABS: Amorphous Light (0-Heavy)
[2022-07-21] MEDS ORDERED: CLON1 PO (18:42)
[2022-07-22 04:39] LABS: Hematocrit 40.9 % (33.0-51.0); Hemoglobin 13.7 g/dL (11.5-16.0); Mean Corpuscular HGB 32.5 pg (26.0-34.0); Mean Corpuscular HGB Conc 33.5 g/dL (31.5-36.5); Mean Corpuscular Volume 97 fL (80-100); Mean Platelet Volume 9.2 fL (9.1-12.4); Platelet Count 185 K/mm3 (150-400); RDW Coefficient Variation 13.7 % (11.7-14.2); RDW Standard Deviation 49.3 fL (35.1-46.3); Red Blood Cell Count 4.21 M/mm3 (3.80-5.20); White Blood Cell Count 9.87 K/mm3 (4.00-11.30)
[2022-07-22 04:58] LABS: Bun/Creatinine Ratio 20.5 (12.0-20.0); Calcium, Blood 8.2 mg/dL (8.5-10.1); Creatinine, Blood 0.49 mg/dL (0.40-1.00); Potassium, Blood 3.2 mmol/L (3.5-5.5)
--- NOTE | 2022-07-22 08:10 | NUR ---
SUMMARY ADMITTED THIS SHIFT FOR R HIP FX -PENDING OR. A/O.ANNALISA MCDUFFIE IN ATTENDANCE AT THIS TIME.
[2022-07-22] MEDS ORDERED: Ondansetron Odt8 MG MM (17:27)
[2022-07-22] MEDS ORDERED: TOPI50 PO (17:29)
[2022-07-22] MEDS ORDERED: TOPI100 PO (17:30)
[2022-07-22] MEDS ORDERED: LIDO5TO TOP (17:32)
[2022-07-23 04:20] LABS: BASOPHILS ABSOLUTE AUTO 0.03 K/mm3 (0.00-0.23); BASOPHILS PERCENT AUTO 0 % (0-2); EOSINOPHILS ABSOLUTE AUTO 0.06 K/mm3 (0.00-0.68); EOSINOPHILS PERCENT AUTO 1 % (0-6); Hematocrit 35.5 % (33.0-51.0); Hemoglobin 12.1 g/dL (11.5-16.0); IMMATURE GRAN ABSOLUTE AUTO 0.05 K/mm3 (0.00-0.10); IMMATURE GRAN PERCENT AUTO 1 % (0-1); LYMPHOCYTES ABSOLUTE AUTO 1.93 K/mm3 (0.84-5.20); LYMPHOCYTES PERCENT AUTO 28 % (21-46); MONOCYTES ABSOLUTE AUTO 0.51 K/mm3 (0.16-1.47); MONOCYTES PERCENT AUTO 8 % (4-13); Mean Corpuscular HGB 32.4 pg (26.0-34.0); Mean Corpuscular HGB Conc 34.1 g/dL (31.5-36.5); Mean Corpuscular Volume 95 fL (80-100); Mean Platelet Volume 9.4 fL (9.1-12.4); NEUTROPHILS ABSOLUTE AUTO 4.21 K/mm3 (1.96-9.15); NEUTROPHILS PERCENT AUTO 62 % (41-73); Platelet Count 146 K/mm3 (150-400); RDW Coefficient Variation 13.8 % (11.7-14.2); Red Blood Cell Count 3.74 M/mm3 (3.80-5.20); White Blood Cell Count 6.79 K/mm3 (4.00-11.30)
[2022-07-23 04:56] LABS: Magnesium, Blood 1.7 mg/dL (1.6-2.4)
[2022-07-23 04:57] LABS: Bun/Creatinine Ratio 16.6 (12.0-20.0); Calcium, Blood 7.8 mg/dL (8.5-10.1); Creatinine, Blood 0.48 mg/dL (0.40-1.00)
--- NOTE | 2022-07-23 05:46 | NUR ---
SHIFT SUMMARY PT POD 0 RIGHT HIP PINNING. PT HAS RESTED MOST OF THE NIGHT, PT IS VOIDING AND IS TOLERATING PO INTAKE. DRESSING INTACT TO RIGHT HIP. PAIN MANAGED PER EMAR. PT HAS BEEN UP AND AMBULATING TO THE BATHROOM WITH 1 ASSIST. NO ACUTE CHANGES OVERNIGHT. BED IN LOWEST POSITION, CALL LIGHT WITHIN REACH.
[2022-07-23] MEDS ORDERED: BUTALB-ACETAMI1 EAC6 PO (13:03)
--- NOTE | 2022-07-23 15:48 | NUR ---
SHIFT SUMMARY PT A&OX4, VSS/RA, FELTON PO, VOIDING WELL, AMB SBA FWW & GB, PAIN MANAGED WITH OXY AND TYLENOL, MIGRAINE TREATED WITH ZOFRAN AND FIORECET, IVF [id number] @ 80 MLS/HR INFUSING PER EMAR. POD1 R PERC PIN, DRESSING CDI, WBAT, PHYSICAL THERAPY YOLA'D. WILL REPORT TO ONCOMING ROYAL BRITO.
[2022-07-24 03:50] LABS: Hematocrit 35.8 % (33.0-51.0); Hemoglobin 12.2 g/dL (11.5-16.0); Mean Corpuscular HGB 32.7 pg (26.0-34.0); Mean Corpuscular HGB Conc 34.1 g/dL (31.5-36.5); Mean Corpuscular Volume 96 fL (80-100); Mean Platelet Volume 9.2 fL (9.1-12.4); Platelet Count 145 K/mm3 (150-400); RDW Coefficient Variation 13.6 % (11.7-14.2); RDW Standard Deviation 48.3 fL (35.1-46.3); Red Blood Cell Count 3.73 M/mm3 (3.80-5.20); White Blood Cell Count 6.87 K/mm3 (4.00-11.30)
[2022-07-24 04:12] LABS: Bun/Creatinine Ratio 12.9 (12.0-20.0); Calcium, Blood 8.4 mg/dL (8.5-10.1); Creatinine, Blood 0.47 mg/dL (0.40-1.00); Potassium, Blood 3.7 mmol/L (3.5-5.5)
--- NOTE | 2022-07-24 05:23 | NUR ---
SHIFT SUMMARY PT A&OX4, AND COOPERATIVE WITH CARE. NO ACUTE CHANGES. MEDICATING FOR PAIN PER EMAR. PT RESTED MAJORITY OF SHIFT. TOLERATING PO INTAKE. SBA WITH FWW/GB TO BATHROOM. DRESSING C/D/I. CALLS APPROPRIATELY, CALL LIGHT WITHIN REACH.
[2022-07-24] MEDS ORDERED: OXYC5 PO (15:09)
--- NOTE | 2022-07-24 16:07 | NUR ---
DISCHARGE SUMMARY POD2 R PERC SCREW FIXATION, A/OX4, VSS, TOLERATING PO, AMBULATING c FWW/GB AND SBA, PAIN MANAGED PER EMAR, VASCULAR ACCESS REMOVED PRIOR TO DC. DISCUSSED DISCHARGE INFORMATION WITH THE PATIENT AND HER SO INCLUDING HOME CARE, MEDICATIONS, FOLLOW UP INFORMATION AND CONTANCT INFO FOR FOLLOW UP QUESTIONS SHOULD ANY ARISE. HARD SCRIPT GIVEN FOR PAIN MEDICATIONS, FULL MED LIST FAXED TO [facility] PER PATIENT REQUEST. NO QUESTIONS AT TIME OF DISCHARGE, PT ESCORTED OUT VIA WC TO PRIVATE AUTO TO GO HOME.
--- NOTE | 2022-07-25 10:14 | NUR ---
07/25/22 1014 Carlene Lechuga VERIFICATIONS: EDIT CHART.
== END 2022-07-24 16:02 | disposition home health service (06) | DRG 482 ==
LOC: ER 14:26 → SURS 19:58
PROVIDERS: Family Medicine; Orthopaedic Surgery; Student in an Organized Health Care Education/Training Program; ADMIT Internal Medicine
PROC: 0QS634Z Reposition Right Upper Femur with Internal Fixation Device, Percutaneous Approach (ICD-10-PCS; principal; 2022-07-22 08:30)
DX: S72.001A Fracture of unspecified part of neck of right femur, initial encounter for closed fracture (principal); K58.9 Irritable bowel syndrome, unspecified; F17.210 Nicotine dependence, cigarettes, uncomplicated; F41.3 Other mixed anxiety disorders; Z28.21 Immunization not carried out because of patient refusal; E87.6 Hypokalemia; I25.10 Atherosclerotic heart disease of native coronary artery without angina pectoris; E86.0 Dehydration; G43.909 Migraine, unspecified, not intractable, without status migrainosus; Z95.5 Presence of coronary angioplasty implant and graft; Z98.51 Tubal ligation status; Z90.721 Acquired absence of ovaries, unilateral; Z88.8 Allergy status to other drugs, medicaments and biological substances; Z79.02 Long term (current) use of antithrombotics/antiplatelets; Z79.899 Other long term (current) drug therapy; W18.39XA Other fall on same level, initial encounter; Y93.01 Activity, walking, marching and hiking; Y92.019 Unspecified place in single-family (private) house as the place of occurrence of the external cause
CPT/HCPCS: 36415; 51702; 71046; 73502; 80048; 80053; 81001; 83690; 83735; 84484; 85025; 85027; 90686; 93005; 93010; 96374-59; 96375-59; 97110; 97116; 97161; 97165; 97530; 97535; 99285-25; A9270; C1713; C1769; J0690; J1100; J1170; J1885; J2250; J2370; J2405; J2704; J3010; J3480; J7030; J7050

== ENCOUNTER 2022-11-18 | Inpatient (IN) | payer OTHER ==
[~2022-11-18] VITALS: Ht 160 cm; Wt 52.1 kg
[~2022-11-18] MED LIST changes: +BUTALB-ACETAMI1 EAC6 PO; +CLON1 PO; +Ondansetron Odt8 MG MM; +TOPI100 PO; +TOPI50 PO
[2022-11-18 01:15] LABS: BASOPHILS ABSOLUTE AUTO 0.07 K/mm3 (0.00-0.23); BASOPHILS PERCENT AUTO 0 % (0-2); EOSINOPHILS ABSOLUTE AUTO 0.01 K/mm3 (0.00-0.68); EOSINOPHILS PERCENT AUTO 0 % (0-6); Hematocrit 51.5 % (33.0-51.0); Hemoglobin 18.2 g/dL (11.5-16.0); IMMATURE GRAN ABSOLUTE AUTO 0.11 K/mm3 (0.00-0.10); IMMATURE GRAN PERCENT AUTO 1 % (0-1); LYMPHOCYTES ABSOLUTE AUTO 1.97 K/mm3 (0.84-5.20); LYMPHOCYTES PERCENT AUTO 9 % (21-46); MONOCYTES ABSOLUTE AUTO 0.92 K/mm3 (0.16-1.47); MONOCYTES PERCENT AUTO 4 % (4-13); Mean Corpuscular HGB 31.4 pg (26.0-34.0); Mean Corpuscular HGB Conc 35.3 g/dL (31.5-36.5); Mean Corpuscular Volume 89 fL (80-100); Mean Platelet Volume 9.1 fL (9.1-12.4); NEUTROPHILS ABSOLUTE AUTO 18.08 K/mm3 (1.96-9.15); NEUTROPHILS PERCENT AUTO 86 % (41-73); Platelet Count 282 K/mm3 (150-400); RDW Coefficient Variation 13.1 % (11.7-14.2); RDW Standard Deviation 42.9 fL (35.1-46.3); White Blood Cell Count 21.16 K/mm3 (4.00-11.30)
[2022-11-18 01:33] LABS: Bilirubin, Direct 0.1 mg/dL (0.0-0.3); Bilirubin, Indirect 0.5 mg/dL (0.1-0.7); Bilirubin, Total 0.6 mg/dL (0.1-1.0); Bun/Creatinine Ratio 41.2 (12.0-20.0); Creatinine, Blood 0.66 mg/dL (0.40-1.00); Globulin, Blood 4.1 g/dL (2.2-4.0); Magnesium, Blood 1.9 mg/dL (1.6-2.4); Potassium, Blood 3.2 mmol/L (3.5-5.5); Total Protein, Blood 8.1 g/dL (6.4-8.2)
[2022-11-18 04:58] LABS: Source, Urine Straight Cath
[2022-11-18 05:05] LABS: Appearance, Urine Clear (Clear); Bilirubin, Urine Neg (Neg); Blood, Urine 4+ (Neg); Color, Urine Yellow (P-Yellow); Glucose Qualitative, Urine Neg (Neg); Ketones, Urine 4+ (Neg); Leukocyte Esterase, Urine 1+ (Neg); Nitrite, Urine Neg (Neg); Protein, Urine 2+ (Neg); Specific Gravity, Urine 1.015 (1.003-1.022); Urobilinogen, Urine NORM (Normal)
[2022-11-18 05:38] LABS: Amorphous Light (0-Heavy); Bacteria Not Seen /hpf; Squamous Epithelial Cells Mod /hpf (Few)
--- NOTE | 2022-11-18 07:50 | NUR ---
PT ARRIVED TO ROOM VIA GURNEY FROM ED. PT ABLE TO STAND AND PIVOT TO BED. SEE DOCUMENTED VS AND ADMISSION ASSESSMENT. IGNITION SOURCE ASSESSMENT COMPLETED, PT DENIES HAVING ANY LIGHTERS OR OTHER SOURCES. PT VERBALIZES UNDERSTANDING OF TEACHING. PT ORIENTED TO ROOM AND UNIT ROUTINES, CALL LIGHT USE. PT IS ABLE TO USE CALL LIGHT FOR NEEDS. WILL CONTINUE TO MONITOR AND CARE FOR PT.
[2022-11-18 07:55] VITALS: BP 117/79
[2022-11-18] MEDS ORDERED: UBRELVY100 MG PO (08:08)
[2022-11-18] MEDS ORDERED: TOPI100 PO (08:09)
[2022-11-18 16:52] VITALS: BP 99/72
--- NOTE | 2022-11-18 18:42 | NUR ---
NO ACUTE CHANGES SINCE LAST NOTE. PT IS NOW MEDICAL STATUS W/O TELE. DR TRUJILLO UPDATED ON MRI RESULTS. DR VIVAR CONSULTED AND PLANS TO TAKE PT TO EGD ON SUNDAY D/T THE FACT SHE TOOK PLAVIX YESTERDAY. PLAVIX IS TO BE HELD UNTIL EGD IS DONE. PT IS SCHEDULED TO HAVE HYDA SCAN IN AM, NPO AND NO OPIATE PAIN MEDICATION AFTER MN. PT HAS BEEN EDUCATED ABOUT THE PLAN, GIVEN TIME TO ASK QUESTIONS, AND VERBALIZES UNDERSTANDING. MEDICATED FOR LOW BACK PAIN PER EMAR. TOLERATING CLEAR LIQUID DIET, WILL ADVANCE TO FULL LIQUID FOR TOMORROW AFTER PROCEDURE. PT IS ABLE TO USE CALL LIGHT FOR NEEDS, CALL LIGHT IN REACH, WILL CONTINUE TO MONITOR AND GIVE REPORT TO NOC SHIFT RN.
[2022-11-18 19:25] VITALS: BP 110/64
[2022-11-18 21:42] VITALS: BP 107/94
[2022-11-18 21:45] VITALS: BP 105/67
--- NOTE | 2022-11-18 22:14 | NUR ---
PATIENT A/O X 4 ABLE TO MAKE NEEDS KNOWN, VSS AT THIS TIME, WITH HR BEING SLIGHTLY INCREASED. WILL CONTINUE TO MONITOR RECIEVED PM METOPROLOL. AFEBRILE, PAINFUL TREATING PER MAR, NPO AND NO NARCOTICS AFTER 0000. WILL CONTINUE TO MONITOR, DENIES CHEST PAIN PRESSURE OR SOB AT REST. NS STILL INFUSING. NO SIGNS OF ACTIVE DISTRESS.
[2022-11-19] VITALS (7 sets, daily range): BP systolic 80–137; BP diastolic 55–89
[2022-11-19 04:43] LABS: BASOPHILS ABSOLUTE AUTO 0.04 K/mm3 (0.00-0.23); BASOPHILS PERCENT AUTO 1 % (0-2); EOSINOPHILS ABSOLUTE AUTO 0.11 K/mm3 (0.00-0.68); EOSINOPHILS PERCENT AUTO 1 % (0-6); Hematocrit 32.5 % (33.0-51.0); Hemoglobin 11.4 g/dL (11.5-16.0); IMMATURE GRAN ABSOLUTE AUTO 0.04 K/mm3 (0.00-0.10); IMMATURE GRAN PERCENT AUTO 1 % (0-1); LYMPHOCYTES ABSOLUTE AUTO 2.67 K/mm3 (0.84-5.20); LYMPHOCYTES PERCENT AUTO 33 % (21-46); MONOCYTES ABSOLUTE AUTO 0.47 K/mm3 (0.16-1.47); MONOCYTES PERCENT AUTO 6 % (4-13); Mean Corpuscular HGB 31.8 pg (26.0-34.0); Mean Corpuscular HGB Conc 35.1 g/dL (31.5-36.5); Mean Corpuscular Volume 91 fL (80-100); Mean Platelet Volume 9.3 fL (9.1-12.4); NEUTROPHILS ABSOLUTE AUTO 4.76 K/mm3 (1.96-9.15); NEUTROPHILS PERCENT AUTO 59 % (41-73); Platelet Count 171 K/mm3 (150-400); RDW Coefficient Variation 13.2 % (11.7-14.2); RDW Standard Deviation 43.8 fL (35.1-46.3); Red Blood Cell Count 3.59 M/mm3 (3.80-5.20); White Blood Cell Count 8.09 K/mm3 (4.00-11.30)
[2022-11-19 05:36] LABS: Albumin, Blood 2.3 g/dL (3.4-5.0); Bilirubin, Total 0.3 mg/dL (0.1-1.0); Bun/Creatinine Ratio 20.1 (12.0-20.0); Calcium, Blood 7.5 mg/dL (8.5-10.1); Creatinine, Blood 0.45 mg/dL (0.40-1.00); Globulin, Blood 2.2 g/dL (2.2-4.0); Potassium, Blood 2.9 mmol/L (3.5-5.5); Total Protein, Blood 4.5 g/dL (6.4-8.2)
--- NOTE | 2022-11-19 10:12 | NUR ---
ASSUMED CARE OF PT AT 0700 THIS AM. IGNITION ASSESSMENT COMPLETED, PT DENIES HAVING ANY SOURCES OF IGNITION. [facility]
[2022-11-19 13:47] LABS: Adenovirus F 40/41 Not Detected (NOT DETECT); Astrovirus Not Detected (NOT DETECT); Campylobacter Sp Not Detected (NOT DETECT); Cryptosporidium Not Detected (NOT DETECT); Cyclospora Cayetanensis Not Detected (NOT DETECT); E. Coli O157 Not Detected (NOT DETECT); Entamoeba Histolytica Not Detected (NOT DETECT); Enteroaggregative E. coli-EAEC Not Detected (NOT DETECT); Enteropathogenic E. coli-EPEC Not Detected (NOT DETECT); Enterotoxigenic E. coli-ETEC Not Detected (NOT DETECT); Giardia Lamblia Not Detected (NOT DETECT); Norovirus GI/GII Not Detected (NOT DETECT); Plesiomonas Shigelloides Not Detected (NOT DETECT); Rotavirus A Not Detected (NOT DETECT); Salmonella Sp Not Detected (NOT DETECT); Sapovirus Not Detected (NOT DETECT); Shiga Toxin-prod E. coli-STEC Not Detected (NOT DETECT); Shigella/Enteroin E. coli-EIEC Not Detected (NOT DETECT); Vibrio Cholerae Not Detected (NOT DETECT); Vibrio Sp Not Detected (NOT DETECT); Yersinia Enterocolitica Not Detected (NOT DETECT)
--- NOTE | 2022-11-19 17:52 | NUR ---
PT RETURNED FROM HYDA SCAN APROX 1150. PT TOLERATED PROCEDURE WELL PER REPORT. NO ACUTE CHANGES T/O THE SHIFT. DR TRUJILLO NOTIFIED OF LOW K AND NEW ORDERS RECEIVED. DR VIVAR IN TO SEE PT, PLAN FOR EGD AND COLONOSCOPY TOMORROW 11/20. PT STARTED ON BOWEL PREP THIS EVENING AND IS TOLERATING WELL AT THIS TIME. STOOL SAMPLE WAS SENT, NEGATIVE. HYDA SCAN RESULTS NEGATIVE. PT REPORTS SOME NAUSEA TODAY BUT DID NOT REQUIRE ZOFRAN. PAIN AND SIGNIFICANT BRUSING NOTED TO LOWER BACK, MEDICATED WITH FENTANYL PER EMAR WITH GOOD RESPONSE. PT TOLERATING PO INTAKE. 4+ BOUTS OF DIARRHEA TODAY, GREEN LIQUID IN CONSISTENCY. SEE DOCUMENTED VS AND ASSESSMENT. PT TO HAVE ONLY ICE CHIPS/WATER AFTER MIDNIGHT AND BE NPO AT 11AM TOMORROW FOR EGD IN THE AFTERNOON. PT VERBALIZES UNDERSTANDING OF PLAN AND HAS NO FURTHER QUESTIONS. CALL LIGHT IN REACH, WILL CONTINUE TO MONITOR AND GIVE REPORT TO NOC SHIFT RN.
[2022-11-20] VITALS (34 sets, daily range): BP systolic 76–127; BP diastolic 44–91
[2022-11-20 05:18] LABS: Bun/Creatinine Ratio 9.9 (12.0-20.0); Calcium, Blood 8.5 mg/dL (8.5-10.1); Creatinine, Blood 0.51 mg/dL (0.40-1.00); Potassium, Blood 3.9 mmol/L (3.5-5.5)
--- NOTE | 2022-11-20 05:21 | NUR ---
SHIFT SUMMARY PT IS A&O4, SB WITH ONE TO THE BSC, PT BOWEL PREPPING FOE COLONSOCOPY AND EGD TODAY TO BE NPO AT 11AM, RA, BP'S HAVE BEEN SOFT THIS SHIFT, PRN PAIN MEDICATION GIVEN PER JUN X2, NO ACUTE OVERNIGHT EVENTS, FIRE SAFETY MITIGATION WITH 02 USE EDUCATION PROVIDED, CONTINUE POC
--- NOTE | 2022-11-20 09:57 | NUR ---
AM NOTE: PT COMPLETED BOWEL PREP THIS MORNING FOR EGD/COLONOSCOPY THIS AFTERNOON. PT CURRENTLY IN THE COMMODE HAVING CLEAR DIARRHEA. VITALS HAS BEEN STABLE HRR ST 100S, SBP 100'S, SATS ABOVE 95% ON RA, AFEBRILE. PT DENIES ANY CHEST PAIN/DISCOMFORT. NO NAUSEA/DIZZINESS UPON AMBULATION. DR TRUJILLO CAME BY AND SAW PT TODAY, TRANSITIONED TO MEDICAL STATUS NO TELE. NO OTHER ISSUES AT THIS TIME. PT CALLS APPOPRIATELY, ALERT AND ORIENTED X4, FORGETFUL AT TIMES. COOPERATIVE WITH CARES. WILL MONITOR T/O SHIFT
--- NOTE | 2022-11-20 12:33 | NUR ---
PT EDUCATION AND SAFETY (FIRE RISKS AND IGNITION SOURCES). PT IS CURRENT EVERYDAY SMOKER, HAS NICOTINE PATCH IN PLACE, EDCUATED ABOUT SMOKING CESSATION. PT DOESNT HAVE ANY IGNITION SOURCES WITH HER BELONGINGS PT STATED.
--- NOTE | 2022-11-20 16:03 | NUR ---
PT TO TRANSFER TO ROOM 301 POST PROCEDURE IF NO ISSUES. PT CURRNETLY TAKEN FOR EGD/SCOPE PROCEDURE AT THIS TIME. REPORT GIVEN TO HANNAH BRITO.
--- NOTE | 2022-11-20 16:12 | NUR ---
11/20/22 1612 Samra Carty HISTORY, CHART, MEDICATIONS AND ALLERGIES REVIEWED BEFORE START OF PROCEDURE. PATIENT CONFIRMS NPO STATUS AND AGREES WITH SCHEDULED PROCEDURE. 3-LEAD EKG REVIEWED WITH PHYSICIAN PRIOR TO START OF PROCEDURE. MONITOR INTACT WITH CONTINUOUS PULSE OXIMETRY,CAPNOGRAPHY, 3-LEAD EKG, INTERMITTENT BP. SUPPLEMENTAL O2 TO BE TITRATED THROUGHOUT PROCEDURE TO MAINTAIN O2 SATURATION ABOVE 90%. PATIENT DETERMINED TO BE ASA APPROPRIATE FOR PROPOFOL SEDATION PRIOR TO START OF PROCEDURE BY DR. VIVAR
--- NOTE | 2022-11-20 18:33 | NUR ---
SHIFT SUMMARY PT TRANSFERRED FROM EDG/COLONOSCOPY PROCEDURE. PT SLIDE TRANSFER TO BED IN 301. SKIN CHECKED WITH SECOND RN MARAL OLMSTEAD RN. PT UP IN BED EATING DINNER, CARDIAC DIET. PT DENIES IGNITION SOURCES. PT DENIES N/V AND SOB AT THIS TIME. BED IN LOW POSITION, CALL LIGHT WITHIN REACH. REPORT FROM BRANDON Daniels RN AT 1551.
[2022-11-21 04:41] VITALS: BP 89/77
[2022-11-21 06:31] LABS: Calcium, Blood 8.7 mg/dL (8.5-10.1); Creatinine, Blood 0.58 mg/dL (0.40-1.00); Magnesium, Blood 1.7 mg/dL (1.6-2.4); Potassium, Blood 4.2 mmol/L (3.5-5.5)
[2022-11-21 08:06] VITALS: BP 91/64
--- NOTE | 2022-11-21 10:36 | NUR ---
AM NOTE: PATIENT ALERT AND ORIENTED X4. SOFT SPOKEN. DENIES NUMBNESS/TINGLING. PERRLA. UP TO BSC WITH ONE PERSON ASSIST. ON ROOM AIR. LUNGS SOUNDING CLEAR. DENIES COUGH/SOB. NO TELE. BP ON SOFTER SIDE. PPP. DENIES CHEST PAIN/PRESSURE/PALPITATIONS. BOWEL TONES PRESENT. LOOSE STOOLS. PRN IMMODIUM GIVEN THIS AM. UP TO BSC WITH ONE PERSON. ATTENDS C/D/I. TOLERATING PO DIET. COMPLAINS OF BACK PAIN THIS AM, MEDICATED WITH GOOD RELIEF. LEFT UPPER ARM PG WNL. ABX INFUSED THIS AM. DR. TRUJILLO BY THIS AM. PLAN FOR DISCHARGE. CALL LIGHT IN REACH.
[2022-11-21] MEDS ORDERED: CHOLP PO (11:11)
[2022-11-21] MEDS ORDERED: NICO21TP TOP (11:13)
[2022-11-21] MEDS ORDERED: LOPE2C PO (11:13)
[2022-11-21] MEDS ORDERED: POTA10T PO (11:14)
--- NOTE | 2022-11-21 13:27 | NUR ---
DISCHARGE: NO ACUTE CHANGES, SEE PREVIOUS NOTE. VITAL SIGNS REMAIN STABLE. DISCHARGE INSTRUCTIONS REVIEWED WITH PATIENT AND SPOUSE. POWERGLIDE REMOVED WNL. HARD PAIN MEDICATION SCRIPT PROVIDED TO PATIENT IN DISCHARGE PACKET AND COPY PLACED IN CHART. MEDICATIONS FAXED TO [facility]. PATIENT TO SCHEDULE APPOINTMENT WITH PCP. PATIENT LEFT UNIT WITH ALL PERSONAL BELONGINGS AND HARD SCRIPT/DISCHARGE PACKET.
== END 2022-11-21 13:27 | disposition home or self-care (01) | DRG 392 ==
LOC: ER → PCU 00:01 → MEDS 11-20 17:28
PROVIDERS: Internal Medicine; Internal Medicine Gastroenterology; Student in an Organized Health Care Education/Training Program; ADMIT Internal Medicine
PROC: 0DBL8ZZ Excision of Transverse Colon, Via Natural or Artificial Opening Endoscopic (ICD-10-PCS; 2022-11-20)
PROC: 0DB68ZX Excision of Stomach, Via Natural or Artificial Opening Endoscopic, Diagnostic (ICD-10-PCS; 2022-11-20)
PROC: 0DBE8ZX Excision of Large Intestine, Via Natural or Artificial Opening Endoscopic, Diagnostic (ICD-10-PCS; 2022-11-20)
PROC: 0DB98ZX Excision of Duodenum, Via Natural or Artificial Opening Endoscopic, Diagnostic (ICD-10-PCS; principal; 2022-11-20 15:00)
PROC: 0DBA8ZX Excision of Jejunum, Via Natural or Artificial Opening Endoscopic, Diagnostic (ICD-10-PCS; 2022-11-20 15:00)
PROC: 0DBP8ZZ Excision of Rectum, Via Natural or Artificial Opening Endoscopic (ICD-10-PCS; 2022-11-20 15:00)
DX: K52.9 Noninfective gastroenteritis and colitis, unspecified (principal); K86.2 Cyst of pancreas; E87.20 Acidosis, unspecified; I25.10 Atherosclerotic heart disease of native coronary artery without angina pectoris; E88.89 Other specified metabolic disorders; E86.0 Dehydration; E87.6 Hypokalemia; F41.8 Other specified anxiety disorders; K82.8 Other specified diseases of gallbladder; F17.210 Nicotine dependence, cigarettes, uncomplicated; B96.89 Other specified bacterial agents as the cause of diseases classified elsewhere; K63.5 Polyp of colon; K62.1 Rectal polyp; R07.89 Other chest pain; K83.8 Other specified diseases of biliary tract; I25.2 Old myocardial infarction; I10 Essential (primary) hypertension; G43.909 Migraine, unspecified, not intractable, without status migrainosus; D72.829 Elevated white blood cell count, unspecified; F43.10 Post-traumatic stress disorder, unspecified; Z95.5 Presence of coronary angioplasty implant and graft; Z98.890 Other specified postprocedural states; Z87.81 Personal history of (healed) traumatic fracture; Z88.8 Allergy status to other drugs, medicaments and biological substances; Z79.899 Other long term (current) drug therapy; Z79.02 Long term (current) use of antithrombotics/antiplatelets; Z87.19 Personal history of other diseases of the digestive system
CPT/HCPCS: 36415; 74177; 74183; 76705; 78226; 80048; 80053; 80076; 81001; 82947; 83605; 83690; 83735; 83880; 84132; 84145; 85025; 87040; 87077; 87507; 88305; 88342; 93005; 93010; 96361; 96365-59; 96366; 96367; 96375-59; 99285-25; A9270; A9537; A9579; C1751; J0696; J1170; J1650; J1885; J2060; J2250; J2270; J2405; J2704; J2765; J3010; J3475; J3480; J7030; J7050; J7120; Q9967

== ENCOUNTER 2023-04-01 07:49 | Inpatient (IN) | payer OTHER ==
[~2023-04-01] VITALS: Ht 157.5 cm; Wt 53.5 kg
[~2023-04-01 07:49] MED LIST changes: +CHOLP PO; +LOPE2C PO; +NICO21TP TOP; +POTA10T PO; +UBRELVY100 MG PO
[2023-04-01 09:02] LABS: BASOPHILS ABSOLUTE AUTO 0.03 K/mm3 (0.00-0.23); BASOPHILS PERCENT AUTO 0 % (0-2); EOSINOPHILS ABSOLUTE AUTO 0.02 K/mm3 (0.00-0.68); EOSINOPHILS PERCENT AUTO 0 % (0-6); Hematocrit 41.9 % (33.0-51.0); Hemoglobin 14.1 g/dL (11.5-16.0); IMMATURE GRAN ABSOLUTE AUTO 0.04 K/mm3 (0.00-0.10); IMMATURE GRAN PERCENT AUTO 0 % (0-1); LYMPHOCYTES PERCENT AUTO 17 % (21-46); MONOCYTES ABSOLUTE AUTO 0.61 K/mm3 (0.16-1.47); MONOCYTES PERCENT AUTO 5 % (4-13); Mean Corpuscular HGB 32.1 pg (26.0-34.0); Mean Corpuscular HGB Conc 33.7 g/dL (31.5-36.5); Mean Corpuscular Volume 95 fL (80-100); Mean Platelet Volume 9.5 fL (9.1-12.4); NEUTROPHILS ABSOLUTE AUTO 9.72 K/mm3 (1.96-9.15); NEUTROPHILS PERCENT AUTO 78 % (41-73); Platelet Count 254 K/mm3 (150-400); RDW Coefficient Variation 12.4 % (11.7-14.2); RDW Standard Deviation 43.6 fL (35.1-46.3); Red Blood Cell Count 4.39 M/mm3 (3.80-5.20); White Blood Cell Count 12.52 K/mm3 (4.00-11.30)
[2023-04-01 09:07] LABS: Albumin, Blood 3.4 g/dL (3.4-5.0); Bilirubin, Total 0.3 mg/dL (0.1-1.0); Bun/Creatinine Ratio 21.6 (12.0-20.0); Calcium, Blood 8.9 mg/dL (8.5-10.1); Creatinine, Blood 0.56 mg/dL (0.40-1.00); Globulin, Blood 3.4 g/dL (2.2-4.0); Total Protein, Blood 6.8 g/dL (6.4-8.2)
[2023-04-01 14:25] VITALS: BP 113/74
--- NOTE | 2023-04-01 14:42 | NUR ---
PT ARRIVED TO THE ROOM AT APPROXIMATELY 1420. PT REPORTS PAIN WITH REPOSITIONING. PT IS ALERT, ORIENTED AND PLEASANT. ATTENDS, ALLEVYN DRESSING AND PUREWICK CATHETER PLACED. PT'S FATHER IS AT THE BEDSIDE FOR SUPPORT.
[2023-04-01] MEDS ORDERED: ACET500 PO (15:25)
[2023-04-01] MEDS ORDERED: OXYC5 PO (15:55)
--- NOTE | 2023-04-01 16:54 | NUR ---
SHIFT SUMMARY PT ARRIVED FROM ER THIS AFTERNOON. PAIN MANAGED WITH PO PAIN MEDICATION. VSS. DR. LUNA STATED THAT ORTHO HAD BEEN NOTIFIED IN ER. PUREWICK PLACED FOR BLADDER MANAGEMENT. PT AWAKE AND RESTING IN BED, CALL LIGHT WITHIN REACH.
[2023-04-01] MEDS ORDERED: XARELTO20 MG PO (17:34)
[2023-04-01 19:46] VITALS: BP 108/74
[2023-04-01 22:44] LABS: Source, Urine Foley catheter
[2023-04-01 22:52] LABS: Bilirubin, Urine Neg (Neg); Blood, Urine 1+ (Neg); Glucose Qualitative, Urine Neg (Neg); Ketones, Urine 4+ (Neg); Leukocyte Esterase, Urine Neg (Neg); Nitrite, Urine Neg (Neg); Protein, Urine Neg (Neg); Urobilinogen, Urine NORM (Normal)
[2023-04-01 23:12] LABS: Appearance, Urine Clear (Clear); Color, Urine Yellow (P-Yellow)
[2023-04-01 23:14] LABS: Bacteria Not Seen /hpf; Red Blood Cells, Urine 0-2 /hpf (0-2); Squamous Epithelial Cells Rare /hpf (Few); White Blood Cells, Urine Not Seen /hpf (0-5)
[2023-04-02] VITALS (15 sets, daily range): BP systolic 101–133; BP diastolic 69–87
[2023-04-02 05:13] LABS: BASOPHILS ABSOLUTE AUTO 0.03 K/mm3 (0.00-0.23); BASOPHILS PERCENT AUTO 0 % (0-2); EOSINOPHILS ABSOLUTE AUTO 0.08 K/mm3 (0.00-0.68); EOSINOPHILS PERCENT AUTO 1 % (0-6); Hemoglobin 14.2 g/dL (11.5-16.0); IMMATURE GRAN ABSOLUTE AUTO 0.02 K/mm3 (0.00-0.10); IMMATURE GRAN PERCENT AUTO 0 % (0-1); LYMPHOCYTES ABSOLUTE AUTO 2.43 K/mm3 (0.84-5.20); LYMPHOCYTES PERCENT AUTO 30 % (21-46); MONOCYTES ABSOLUTE AUTO 0.65 K/mm3 (0.16-1.47); MONOCYTES PERCENT AUTO 8 % (4-13); Mean Corpuscular HGB 32.3 pg (26.0-34.0); Mean Corpuscular HGB Conc 34.6 g/dL (31.5-36.5); Mean Corpuscular Volume 93 fL (80-100); Mean Platelet Volume 9.4 fL (9.1-12.4); NEUTROPHILS ABSOLUTE AUTO 5.02 K/mm3 (1.96-9.15); NEUTROPHILS PERCENT AUTO 61 % (41-73); Platelet Count 236 K/mm3 (150-400); RDW Coefficient Variation 12.6 % (11.7-14.2); RDW Standard Deviation 43.5 fL (35.1-46.3); White Blood Cell Count 8.23 K/mm3 (4.00-11.30)
[2023-04-02 05:55] LABS: Albumin, Blood 3.2 g/dL (3.4-5.0); Bilirubin, Total 0.4 mg/dL (0.1-1.0); Bun/Creatinine Ratio 14.7 (12.0-20.0); Calcium, Blood 8.7 mg/dL (8.5-10.1); Creatinine, Blood 0.48 mg/dL (0.40-1.00); Globulin, Blood 3.3 g/dL (2.2-4.0); Magnesium, Blood 1.7 mg/dL (1.6-2.4); Potassium, Blood 3.4 mmol/L (3.5-5.5); Thyroid Stimulating Hormone 1.04 uIU/mL (0.360-4.800); Total Protein, Blood 6.5 g/dL (6.4-8.2)
--- NOTE | 2023-04-02 06:17 | NUR ---
SUMMARY PT FOUND TO BE RETAINING URINE. PROVIDER CALLED AND A APARICIO CATH WAS ORDERED. PT APARICIO DRAINING WELL TO GRAVITY. PT PAIN HAS BEEN MANAGED PER MAR. PT REPOSITIONED TOLERATED. PT HAS BEEN NPO SINCE MIDNIGHT. CALL LIGHT IN REACH.
--- NOTE | 2023-04-02 13:34 | NUR ---
PT HAS 22G IV TO LEFT AC THAT FLUSHES WELL AND FLOWS TO GRAVITY. WILL START A SECONDARY IN OR PER MD.
--- NOTE | 2023-04-02 18:07 | NUR ---
SHIFT SUMMARY A/O X4- POD0 L HIP PINNING- AQUACEL C/D/I. TOLERATING PO INTAKE W/ NO REPORT OF N/V. APARICIO IN PLACE, DRAINING TO GRAVITY. PAIN MANAGED WELL PER EMAR. WILL REPORT TO ONCOMING RN.
[2023-04-03 05:11] LABS: BASOPHILS ABSOLUTE AUTO 0.02 K/mm3 (0.00-0.23); BASOPHILS PERCENT AUTO 0 % (0-2); EOSINOPHILS ABSOLUTE AUTO 0.02 K/mm3 (0.00-0.68); EOSINOPHILS PERCENT AUTO 0 % (0-6); Hematocrit 40.4 % (33.0-51.0); Hemoglobin 13.7 g/dL (11.5-16.0); IMMATURE GRAN ABSOLUTE AUTO 0.03 K/mm3 (0.00-0.10); IMMATURE GRAN PERCENT AUTO 0 % (0-1); LYMPHOCYTES ABSOLUTE AUTO 2.71 K/mm3 (0.84-5.20); LYMPHOCYTES PERCENT AUTO 29 % (21-46); MONOCYTES PERCENT AUTO 10 % (4-13); Mean Corpuscular HGB Conc 33.9 g/dL (31.5-36.5); Mean Corpuscular Volume 94 fL (80-100); Mean Platelet Volume 9.7 fL (9.1-12.4); NEUTROPHILS ABSOLUTE AUTO 5.61 K/mm3 (1.96-9.15); NEUTROPHILS PERCENT AUTO 60 % (41-73); Platelet Count 228 K/mm3 (150-400); RDW Coefficient Variation 12.6 % (11.7-14.2); RDW Standard Deviation 43.3 fL (35.1-46.3); Red Blood Cell Count 4.28 M/mm3 (3.80-5.20); White Blood Cell Count 9.29 K/mm3 (4.00-11.30)
[2023-04-03 05:26] LABS: International Normalized Ratio 1.05
[2023-04-03 05:41] VITALS: BP 96/69
[2023-04-03 05:56] LABS: Bun/Creatinine Ratio 20.2 (12.0-20.0); Calcium, Blood 8.8 mg/dL (8.5-10.1); Creatinine, Blood 0.5 mg/dL (0.40-1.00); Magnesium, Blood 1.9 mg/dL (1.6-2.4); Potassium, Blood 3.8 mmol/L (3.5-5.5)
--- NOTE | 2023-04-03 06:28 | NUR ---
SHIFT SUMMARY POD 1 L HIP PINNING. HX: R HIP REPAIR WITHIN LAST 6 MONTHS. NO ACUTE CHANGES OVERNIGHT. VS WNL FOR PT. TOLERATING MINIMAL ORALS, ENCOURAGE ORAL INTAKE. APARICIO D/C'd THIS AM, AWAITING FIRST VOID. PT HAS NOT YET AMBULATED POST OP. PT VERBALIZES MINOR ANXIETY R/T AMBULATION BECAUSE OF PREVIOUS HIP FX ON R SIDE. INDICATION FOR PHYSICAL THERAPY EVALUATION TODAY. PT MEDICATED PER EMAR FOR PAIN, PT REPORTS TOLERABLE "ENOUGH TO SLEEP FOR SHORT PERIODS OF TIME." CALL LIGHT WITHIN REACH, BED IN LOWEST POSITION, WILL REPORT TO DAY RN.
[2023-04-03 07:25] VITALS: BP 100/71
[2023-04-03 14:24] VITALS: BP 101/74
--- NOTE | 2023-04-03 18:42 | NUR ---
SHIFT SUMMARY PATIENT IS AOX4, 2 PP TO CHAIR AND BSC. TTWB STATUS L LEG. WORKED WITH PT AND OT TODAY. UP IN THE CHAIR FOR ALL MEALS. AWAITING SNF PLAECMENT. MEDICATED FOR PAIN PER EMAR. VOIDING AND PASSING GAS. TOLERATED PO. VSS. CALL LIGHT IN REACH.
[2023-04-03 19:20] VITALS: BP 119/76
[2023-04-04 02:49] VITALS: BP 148/96
[2023-04-04 04:54] LABS: BASOPHILS ABSOLUTE AUTO 0.03 K/mm3 (0.00-0.23); BASOPHILS PERCENT AUTO 0 % (0-2); EOSINOPHILS ABSOLUTE AUTO 0.08 K/mm3 (0.00-0.68); EOSINOPHILS PERCENT AUTO 1 % (0-6); Hematocrit 41.5 % (33.0-51.0); Hemoglobin 14.2 g/dL (11.5-16.0); IMMATURE GRAN ABSOLUTE AUTO 0.02 K/mm3 (0.00-0.10); IMMATURE GRAN PERCENT AUTO 0 % (0-1); LYMPHOCYTES ABSOLUTE AUTO 2.02 K/mm3 (0.84-5.20); LYMPHOCYTES PERCENT AUTO 24 % (21-46); MONOCYTES ABSOLUTE AUTO 0.55 K/mm3 (0.16-1.47); MONOCYTES PERCENT AUTO 6 % (4-13); Mean Corpuscular HGB 32.2 pg (26.0-34.0); Mean Corpuscular HGB Conc 34.2 g/dL (31.5-36.5); Mean Corpuscular Volume 94 fL (80-100); Mean Platelet Volume 9.4 fL (9.1-12.4); NEUTROPHILS ABSOLUTE AUTO 5.84 K/mm3 (1.96-9.15); NEUTROPHILS PERCENT AUTO 68 % (41-73); Platelet Count 237 K/mm3 (150-400); RDW Coefficient Variation 12.4 % (11.7-14.2); RDW Standard Deviation 43.4 fL (35.1-46.3); Red Blood Cell Count 4.41 M/mm3 (3.80-5.20); White Blood Cell Count 8.54 K/mm3 (4.00-11.30)
--- NOTE | 2023-04-04 04:56 | NUR ---
SHIFT SUMMARY NO ACUTE CHANGES TO REPORT OVERNIGHT. PT AMBULATED TO THE BSC FROM THE CHAIR ONCE THIS SHIFT WITH 2 PERSON MAX ASSIST. PT IS VERY WEAK, AND NEEDS LOTS OF VERBAL CUES. DRESSING TO LEFT HIP C/D/I. MEDICATED FOR PAIN PRN PER EMAR. PLAN IS FOR DC SNF TODAY. BED IN LOWEST POSITION, CALL LIGHT WITHIN REACH.
[2023-04-04 05:17] LABS: Bun/Creatinine Ratio 20.8 (12.0-20.0); Creatinine, Blood 0.43 mg/dL (0.40-1.00)
[2023-04-04 07:27] VITALS: BP 139/92
[2023-04-04] MEDS ORDERED: BISA10S PR (09:14)
--- NOTE | 2023-04-04 14:00 | NUR ---
DISCHARGE NOTE: PATIENT IS BEING DISCHARGED TO [facility] AT 1500 TODAY. THIS NURSE JUST G[facility] RE[facility]. AFTER REPORT WAS GIVEN JAKY RN HAD NO FURTHER QUESTIONS AT THIS TIME. PAIN IS MANAGED WITH PO PAIN MEDS. HER LEFT HIP HAS AN AQUACEL THAT IS C/D/I. SHE IS A 2 PERSON ASSIST WITH FWW AND GAIT BELT. SHE IS TOLERATING PO INTAKE AND IS VOIDING/PASSING GAS. PATIENT IS DRESSED AND HAS PERSONAL ITEMS IN THE ROOM GATHERED. SHE IS CURRENTLY LAYING IN BED WITH CALL LIGHT IN REACH AWAITING FOR TRANSPORT TO ARRIVE AT 1500 TODAY.
--- NOTE | 2023-04-04 15:17 | NUR ---
TRANSPORT JUST ARRIVED AND TOOK PATIENT TO [facility].
== END 2023-04-04 15:15 | DRG 482 ==
LOC: ER 07:49 → SURS 11:59
PROVIDERS: Emergency Medicine; Nurse Practitioner Acute Care; Orthopaedic Surgery; ADMIT Hospitalist
PROC: 0QS734Z Reposition Left Upper Femur with Internal Fixation Device, Percutaneous Approach (ICD-10-PCS; principal; 2023-04-02 13:30)
DX: S72.002A Fracture of unspecified part of neck of left femur, initial encounter for closed fracture (principal); I25.10 Atherosclerotic heart disease of native coronary artery without angina pectoris; F32.A Depression, unspecified; F41.9 Anxiety disorder, unspecified; K58.0 Irritable bowel syndrome with diarrhea; F17.200 Nicotine dependence, unspecified, uncomplicated; W18.39XA Other fall on same level, initial encounter; G43.909 Migraine, unspecified, not intractable, without status migrainosus; I25.2 Old myocardial infarction; Z95.5 Presence of coronary angioplasty implant and graft; Z88.8 Allergy status to other drugs, medicaments and biological substances
CPT/HCPCS: 36415; 70450; 71045; 72125; 73502; 80048; 80053; 81001; 83735; 84443; 84484; 85025; 85610; 85730; 93005; 93010; 94760; 96374; 96376; 97110; 97116; 97162; 97166; 97530; 97535; 99285-25; A9270; C1713; C1769; J0690; J1170; J1650; J2250; J2270; J2704; J3010; J3475; J7120

== ENCOUNTER → 2023-05-10 | Outpatient (CLI) | payer OTHER ==
[~2023-05-10] MED LIST changes: +ACET500 PO; +BISA10S PR; +XARELTO20 MG PO
== END ==
LOC: LAB SHORT 17:06 → LAB 17:06
DX: R30.0 Dysuria (principal)
CPT/HCPCS: 87086

== ENCOUNTER 2023-05-28 14:09 | Emergency (ER) | payer OTHER ==
[~2023-05-28] VITALS: Ht 157.5 cm; Wt 51.7 kg
[2023-05-28] MEDS ORDERED: HYDROCODONE-AC1 EA19 PO (15:05)
[2023-05-28] MEDS ORDERED: NS 1,000 ML IV SCH ×2 (15:40→18:45)
[2023-05-28] MEDS ORDERED: OxyCODONE HCL 5 MG TAB PO ONE (15:45)
[2023-05-28 15:49] LABS: BASOPHILS ABSOLUTE AUTO 0.05 K/mm3 (0.00-0.23); BASOPHILS PERCENT AUTO 0 % (0-2); EOSINOPHILS ABSOLUTE AUTO 0.01 K/mm3 (0.00-0.68); EOSINOPHILS PERCENT AUTO 0 % (0-6); Hematocrit 50.5 % (33.0-51.0); Hemoglobin 17.1 g/dL (11.5-16.0); IMMATURE GRAN ABSOLUTE AUTO 0.07 K/mm3 (0.00-0.10); IMMATURE GRAN PERCENT AUTO 1 % (0-1); LYMPHOCYTES ABSOLUTE AUTO 3.55 K/mm3 (0.84-5.20); LYMPHOCYTES PERCENT AUTO 29 % (21-46); MONOCYTES ABSOLUTE AUTO 0.87 K/mm3 (0.16-1.47); MONOCYTES PERCENT AUTO 7 % (4-13); Mean Corpuscular HGB 31.3 pg (26.0-34.0); Mean Corpuscular HGB Conc 33.9 g/dL (31.5-36.5); Mean Corpuscular Volume 93 fL (80-100); NEUTROPHILS ABSOLUTE AUTO 7.77 K/mm3 (1.96-9.15); NEUTROPHILS PERCENT AUTO 63 % (41-73); Platelet Count 369 K/mm3 (150-400); RDW Coefficient Variation 13.7 % (11.7-14.2); RDW Standard Deviation 46.5 fL (35.1-46.3); Red Blood Cell Count 5.46 M/mm3 (3.80-5.20); White Blood Cell Count 12.32 K/mm3 (4.00-11.30)
[2023-05-28 16:05] LABS: Albumin, Blood 4.3 g/dL (3.4-5.0); Bilirubin, Total 0.5 mg/dL (0.1-1.0); Bun/Creatinine Ratio 21.6 (12.0-20.0); Calcium, Blood 10.6 mg/dL (8.5-10.1); Creatinine, Blood 0.65 mg/dL (0.40-1.00); Globulin, Blood 4.1 g/dL (2.2-4.0); Potassium, Blood 4.1 mmol/L (3.5-5.5); Total Protein, Blood 8.4 g/dL (6.4-8.2)
[2023-05-28] MEDS ORDERED: Thiamine HCl 100 MG in NS 50 ML IV ONE (16:45)
[2023-05-28] MEDS ORDERED: Ondansetron HCl 2 MG / ML 2ML Vial IV ONE ×2 (16:55→18:45)
[2023-05-28] MEDS ORDERED: Acetaminophen 500 MG Tab PO ONE (16:55)
[2023-05-28] MEDS ORDERED: D5W-NS 1,000 ML IV SCH (17:00)
[2023-05-28] MEDS ORDERED: RX Prepack 6 Tabs Oxycodone 5mg UD ONE (17:05)
[2023-05-28] MEDS ORDERED: RX Prepack 2 Tabs Ondansetron ODT 4MG UD ONE (17:05)
[2023-05-28] MEDS ORDERED: ONDA4ODT MM (17:06)
[2023-05-28 18:41] LABS: Source, Urine Clean Catch
[2023-05-28 18:46] LABS: Appearance, Urine Hazy (Clear); Bilirubin, Urine Neg (Neg); Blood, Urine 4+ (Neg); Glucose Qualitative, Urine Neg (Neg); Ketones, Urine 4+ (Neg); Leukocyte Esterase, Urine Neg (Neg); Nitrite, Urine Neg (Neg); Protein, Urine Neg (Neg); Specific Gravity, Urine 1.025 (1.003-1.022); Urobilinogen, Urine NORM (Normal)
[2023-05-28 18:57] LABS: Color, Urine Pale Yellow (P-Yellow)
[2023-05-28 18:59] LABS: Amorphous Light (0-Heavy); Bacteria Few /hpf; Hyaline Casts 0-2 /lpf (0-2); Mucus Light (0-Heavy); Squamous Epithelial Cells Many /hpf (Few)
[2023-05-28 20:15] VITALS: BP 108/79
== END 2023-05-28 20:26 | disposition home or self-care (01) ==
LOC: ER 14:09
PROVIDERS: Emergency Medicine
DX: E88.89 Other specified metabolic disorders (principal); T73.0XXA Starvation, initial encounter; R30.0 Dysuria; E86.0 Dehydration; G89.29 Other chronic pain; I25.10 Atherosclerotic heart disease of native coronary artery without angina pectoris; I25.2 Old myocardial infarction; F32.A Depression, unspecified; F41.9 Anxiety disorder, unspecified; K58.9 Irritable bowel syndrome, unspecified; Z88.8 Allergy status to other drugs, medicaments and biological substances; Z79.899 Other long term (current) drug therapy; Z79.01 Long term (current) use of anticoagulants
CPT/HCPCS: 51798; 80053; 81001; 82010; 82947; 84484; 85025; 93005; 93010; 96361; 96365; 96375; 96376; 99284-25; A9270; J2405; J3411; J7030; J7042

== ENCOUNTER 2023-10-23 06:07 | Day surgery (SDC) | payer OTHER ==
[2023-10-23] VITALS (17 sets, daily range): BP systolic 76–122; BP diastolic 57–77
[~2023-10-23] VITALS: Ht 157.5 cm; Wt 52.8 kg
[~2023-10-23 06:07] MED LIST changes: +BUTALB-ACETAMI1 EAC5 PO; +HYDROCODONE-AC1 EA19 PO; -Lopressor 25 mg25 MG PO; +METO25ER PO; +OMEP20ER PO; +ONDA4ODT MM; +OXYCODONE-ACET1 EAC3 PO; +VARENICLINE TART1 M2 PO
[2023-10-23] MEDS ORDERED: CeFAZolin Sodium 2,000 MG in NS 100 ML IV SCH ×2 (06:15→16:00)
[2023-10-23] MEDS ORDERED: Acetaminophen 500 MG Tab PO SCH ×2 (06:15→16:00)
[2023-10-23] MEDS ORDERED: Chlorhexidine Mouth Care 15 ML UDC MT SCH (06:15)
[2023-10-23] MEDS ORDERED: Lactated Ringer's 1,000 ML IV SCH ×2 (06:15→10:10)
[2023-10-23] MEDS ORDERED: Ropivacaine 0.5% HCl/Pf 123.125 MG,EPINEPHrine HCL 0.25 MG,Ketorolac Tromethamine 15 MG... INFIL SCH (06:15)
[2023-10-23] MEDS ORDERED: OxyCODONE HCL 10 MG TABCR PO SCH (06:15)
[2023-10-23] MEDS ORDERED: Tranexamic Acid 100 ML IV SCH (06:21)
[2023-10-23] MEDS ORDERED: Dexmedetomidine HCL 200 MCG / 2 ML ONE (07:01)
[2023-10-23] MEDS ORDERED: Bupivacaine 0.5% HCl 5 MG/ML 30MLVIAL ONE (07:01)
[2023-10-23] MEDS ORDERED: propofoL 200 ML IV ONE (07:02)
[2023-10-23] MEDS ORDERED: Midazolam HCl 1MG / ML 2ML Vial ONE (07:05)
[2023-10-23] MEDS ORDERED: FentaNYL Citrate 50 MCG/ML 2 ML Injection ONE (07:05)
[2023-10-23] MEDS ORDERED: Lidocaine HCl 2% 20 ML MDV ONE (07:33)
[2023-10-23] MEDS ORDERED: Phenylephrine HCl 100 MCG/ML-NS 10MLSYR (1MG/10ML) ONE (08:10)
[2023-10-23] MEDS ORDERED: Phenylephrine HCl 10mg/ml 1 ml Vial ONE (08:28)
--- NOTE | 2023-10-23 08:40 | NUR ---
10/23/23 0840 Helen Sanches SPINAL NERVE BLOCK COMPLETED BY VALDO LOPEZ UPON ENTRY TO OR. PT TOLERATED WELL.
[2023-10-23] MEDS ORDERED: Dexamethasone Sod Phos 10 MG/ML 1ML VIAL ONE (08:44)
[2023-10-23] MEDS ORDERED: Ondansetron HCl 2 MG / ML 2ML Vial IV PRN ×2 (08:45→10:00)
[2023-10-23] MEDS ORDERED: FentaNYL Citrate 50 MCG/ML 2 ML Injection IV PRN ×2 (08:50)
[2023-10-23] MEDS ORDERED: HYDROmorphone HCl/Pf 1MG SYR IV PRN ×2 (08:50→10:10)
--- NOTE | 2023-10-23 09:08 | NUR ---
History, Chart, Medications and Allergies reviewed before start of procedure. Patient confirms NPO status and agrees with scheduled surgery. Lungs clear T/O to Auscultation. Patient reports completing Chlorhexadine shower X2 prior to admission to ostal. Pre-Op teaching done. Pt verbalizes understanding.
[2023-10-23] MEDS ORDERED: propofoL 20 ML IV ONE (09:23)
[2023-10-23] MEDS ORDERED: Metoclopramide HCl 5MG / ML 2ML Vial IV PRN (10:00)
[2023-10-23] MEDS ORDERED: OxyCODONE HCL 5 MG TAB PO PRN ×2 (10:00)
[2023-10-23] MEDS ORDERED: Magnesium Hydroxide Conc 10 ML UDC PO PRN (10:00)
[2023-10-23] MEDS ORDERED: Bisacodyl 10 MG Supp PR PRN (10:05)
[2023-10-23] MEDS ORDERED: Promethazine HCl 25 MG Tab PO PRN (10:05)
[2023-10-23] MEDS ORDERED: DiphenhydrAMINE HCL 25 MG Cap PO PRN (10:05)
[2023-10-23] MEDS ORDERED: Prochlorperazine Edisylate 10 mg Vial IV PRN (10:05)
[2023-10-23] MEDS ORDERED: UBRELVY 100 MG PO PRN (10:20)
--- NOTE | 2023-10-23 10:32 | NUR ---
ARRIVAL TO UNIT PT ARRIVED TO UNIT FROM PACU ON A BED. A&O x4. VSS, PT SAT >90% ON RA, PT STATES BP BASELINE HYPOTENSIVE c SYSTOLIC IN APPROX 90s. PT DENIES N/V. IV FLUIDS INFUSING PER EMAR. S/P R LUIZA. AQUACEL x2 C/D/I. PT REPORTS PAIN TO R HIP/GROIN. PAIN MANAGED PER EMAR & POLAR PACK; PT RECEIVED SPINAL. PT ON BEDREST AT THIS TIME R/T DIMINISHED SENSATION. AWAITING FIRST PSOT-OP VOID, PACU NURSE REPORTED PT WAS BLADDER SCANNED WITH APPROX 346 IN BLADDER, NO ACTION TAKEN. ORIENTED TO ROOM, BED IN LOWEST POSTITION, CALL LIGHT IN REACH.
[2023-10-23] MEDS ORDERED: Ketorolac Tromethamine 15mg Vial IV SCH (12:00)
--- NOTE | 2023-10-23 13:46 | NUR ---
Spiritual Care Attempted. Pt. is resting in bed, but responds when I enter the room. Pt. displays evidence of rory, but declines spiritual care. Pt. verbalized gratittude for the visit.
--- NOTE | 2023-10-23 18:16 | NUR ---
SHIFT SUMMARY POD 0 R LUIZA. NO ACUTE CHANGES TODAY. VSS, PT BASLINE SYSTOLIC BP IN 90s. TOLERATING ORALS, DENIES N/V. IV FLUIDS/ABX INFUSING PER EMAR. PT REPORTS INCREASED PAIN TO R HIP/GROIN AREA; POLAR PACK IN USE, MEDICATED PER EMAR, S/P SPINAL. PT REPORTS DECREASED SENSATION S/P SPINAL. PT HAS NOT AMBULATED YET R/T NUMBNESS POST SPINAL. PT REQUIRED STRAIGHT CATH x1 TODAY, BLADDER SCAN NOT >300 AT THIS TIME, ATTENDS IN USE. ANTICIPATED TO WORK WITH PHYSCIAL THERAPY & DISCHARGE HOME TOMORROW. CALL LIGHT IN REACH, BED IN LOWEST POSITION, WILL REPORT TO ROYAL RN.
[2023-10-23] MEDS ORDERED: Amitriptyline HCl 50 MG Tab PO SCH (21:00)
[2023-10-23] MEDS ORDERED: Atorvastatin 40 MG Tab PO SCH (21:00)
[2023-10-23] MEDS ORDERED: Baclofen 10 MG Tab PO SCH (21:00)
[2023-10-23] MEDS ORDERED: Docusate Sodium 100 MG Cap PO SCH (21:00)
[2023-10-23] MEDS ORDERED: Prazosin HCL 5 MG Cap PO SCH (21:00)
[2023-10-23] MEDS ORDERED: Sertraline HCl 100 MG Tab PO SCH (21:00)
[2023-10-23] MEDS ORDERED: Topiramate 100 MG Tab PO SCH (21:00)
[2023-10-23] MEDS ORDERED: ClonazePAM 1 MG Tab PO SCH (21:00)
[2023-10-24 03:03] VITALS: BP 113/82
[2023-10-24 04:49] LABS: BASOPHILS ABSOLUTE AUTO 0.04 K/mm3 (0.00-0.23); BASOPHILS PERCENT AUTO 0 % (0-2); EOSINOPHILS ABSOLUTE AUTO 0.07 K/mm3 (0.00-0.68); EOSINOPHILS PERCENT AUTO 1 % (0-6); Hematocrit 32.9 % (33.0-51.0); Hemoglobin 10.8 g/dL (11.5-16.0); IMMATURE GRAN ABSOLUTE AUTO 0.04 K/mm3 (0.00-0.10); IMMATURE GRAN PERCENT AUTO 0 % (0-1); LYMPHOCYTES ABSOLUTE AUTO 2.24 K/mm3 (0.84-5.20); LYMPHOCYTES PERCENT AUTO 21 % (21-46); MONOCYTES ABSOLUTE AUTO 1.09 K/mm3 (0.16-1.47); MONOCYTES PERCENT AUTO 10 % (4-13); Mean Corpuscular HGB 33.4 pg (26.0-34.0); Mean Corpuscular HGB Conc 32.8 g/dL (31.5-36.5); Mean Corpuscular Volume 102 fL (80-100); Mean Platelet Volume 9.4 fL (9.1-12.4); NEUTROPHILS ABSOLUTE AUTO 7.27 K/mm3 (1.96-9.15); NEUTROPHILS PERCENT AUTO 68 % (41-73); Platelet Count 167 K/mm3 (150-400); RDW Coefficient Variation 15.6 % (11.7-14.2); RDW Standard Deviation 58.7 fL (35.1-46.3); Red Blood Cell Count 3.23 M/mm3 (3.80-5.20); White Blood Cell Count 10.75 K/mm3 (4.00-11.30)
--- NOTE | 2023-10-24 04:49 | NUR ---
SHIFT SUMMARY POD 1 R LUIZA PT ABLE TO REST DURING THE NIGHT. PAIN MANAGED PER EMAR. PT HAS X2 AQUACEL TO R HIP, C/D/I. PT ABLE TO AMB TO THE BATHROOM WITH 1P SBA W/ FWW AND GB. PT TOLERATING PO INTAKE, VOIDING. PT DENIES ANY N/T TO EXT'S. VSS. PLAN TO HAVE THERAPY THIS AM AND THEN D/C HOME. NO OTHER CONCERNS AT THIS TIME, CALL LIGHT WITHIN REACH
[2023-10-24 05:36] LABS: Bun/Creatinine Ratio 36.6 (12.0-20.0); Calcium, Blood 8.6 mg/dL (8.5-10.1); Creatinine, Blood 0.57 mg/dL (0.40-1.00); Potassium, Blood 4.1 mmol/L (3.5-5.5)
[2023-10-24] MEDS ORDERED: Omeprazole 20 MG CapCR PO SCH (06:00)
[2023-10-24 07:55] VITALS: BP 98/69
[2023-10-24 07:56] VITALS: BP 93/66
[2023-10-24] MEDS ORDERED: Potassium Chloride 10 Meq Tablet SA PO SCH (09:00)
[2023-10-24] MEDS ORDERED: Rivaroxaban 10 MG Tab PO SCH (09:00)
[2023-10-24] MEDS ORDERED: Metoprolol Succinate 25 MG TABCR PO SCH (09:00)
--- NOTE | 2023-10-24 11:08 | NUR ---
DISCHARGE PT HAS WORKED w/ THERAPY. PAIN WELL CONTROLLED. EATING, DRINKING, & VOIDING WELL. [facility] SENT w/ PT. ESCORTED OUT VIA W/C.
== END 2023-10-24 11:05 | disposition home or self-care (01) ==
LOC: ORSCMMR 06:07 → ORD 07:30 → ORSCMMR 07:30 → SURS 10:28 → ORSCMMR 10-24 11:05
PROVIDERS: Orthopaedic Surgery
PROC: 0SR90J9 Replacement of Right Hip Joint with Synthetic Substitute, Cemented, Open Approach (ICD-10-PCS; principal; 2023-10-23 07:30)
DX: M87.2 Osteonecrosis due to previous trauma (principal); E78.5 Hyperlipidemia, unspecified; I25.2 Old myocardial infarction; M81.8 Other osteoporosis without current pathological fracture; F32.A Depression, unspecified; I10 Essential (primary) hypertension; I25.10 Atherosclerotic heart disease of native coronary artery without angina pectoris; Z87.891 Personal history of nicotine dependence; Z79.01 Long term (current) use of anticoagulants; Z79.899 Other long term (current) drug therapy
CPT/HCPCS: 36415; 72170; 80048; 85025; 88304; 88311; 94760; 97110; 97116; 97162; A9270; C1713; C1769; C1776; J0171; J0690; J0735; J1100; J1170; J1885; J2250; J2371; J2704; J2795; J3010; J7120

== ENCOUNTER 2024-04-03 14:05 | Emergency (ER) | payer OTHER ==
[~2024-04-03] VITALS: Ht 157.5 cm; Wt 47.6 kg
[2024-04-03 15:01] VITALS: BP 118/94
[2024-04-03 16:09] LABS: BASOPHILS ABSOLUTE AUTO 0.05 K/mm3 (0.00-0.23); BASOPHILS PERCENT AUTO 0 % (0-2); EOSINOPHILS ABSOLUTE AUTO 0.01 K/mm3 (0.00-0.68); EOSINOPHILS PERCENT AUTO 0 % (0-6); Hematocrit 49.1 % (33.0-51.0); Hemoglobin 17.2 g/dL (11.5-16.0); IMMATURE GRAN ABSOLUTE AUTO 0.07 K/mm3 (0.00-0.10); IMMATURE GRAN PERCENT AUTO 1 % (0-1); LYMPHOCYTES ABSOLUTE AUTO 2.65 K/mm3 (0.84-5.20); LYMPHOCYTES PERCENT AUTO 19 % (21-46); MONOCYTES ABSOLUTE AUTO 0.95 K/mm3 (0.16-1.47); MONOCYTES PERCENT AUTO 7 % (4-13); Mean Corpuscular HGB 34.1 pg (26.0-34.0); Mean Corpuscular Volume 97 fL (80-100); Mean Platelet Volume 8.9 fL (9.1-12.4); NEUTROPHILS ABSOLUTE AUTO 10.37 K/mm3 (1.96-9.15); NEUTROPHILS PERCENT AUTO 74 % (41-73); Platelet Count 276 K/mm3 (150-400); RDW Coefficient Variation 14.1 % (11.7-14.2); RDW Standard Deviation 50.6 fL (35.1-46.3); Red Blood Cell Count 5.04 M/mm3 (3.80-5.20)
[2024-04-03 16:36] LABS: Albumin, Blood 4.1 g/dL (3.4-5.0); Albumin/Globulin Ratio 1.1 (0.8-1.8); Bilirubin, Total 0.7 mg/dL (0.1-1.0); Bun/Creatinine Ratio 14.9 (12.0-20.0); Calcium, Blood 9.9 mg/dL (8.5-10.1); Creatinine, Blood 0.61 mg/dL (0.40-1.00); Globulin, Blood 3.8 g/dL (2.2-4.0); Magnesium, Blood 1.7 mg/dL (1.6-2.4); Potassium, Blood 3.6 mmol/L (3.5-5.5); Total Protein, Blood 7.9 g/dL (6.4-8.2)
[2024-04-03] MEDS ORDERED: NS 1,000 ML IV SCH (18:35)
[2024-04-03] MEDS ORDERED: Ketorolac Tromethamine 30mg Vial IV ONE (19:00)
[2024-04-03] MEDS ORDERED: Ondansetron HCl 2 MG / ML 2ML Vial IV ONE (19:00)
== END 2024-04-03 20:07 | disposition home or self-care (01) ==
LOC: ER 14:05
PROVIDERS: Physician Assistant
DX: B34.9 Viral infection, unspecified (principal); G43.909 Migraine, unspecified, not intractable, without status migrainosus; I25.2 Old myocardial infarction; F17.210 Nicotine dependence, cigarettes, uncomplicated; Z79.899 Other long term (current) drug therapy; Z88.8 Allergy status to other drugs, medicaments and biological substances
CPT/HCPCS: 80053; 83735; 85025; 96361; 96374; 96375; 99284; J1885; J2405; J7030

== ENCOUNTER 2024-06-28 21:42 | Inpatient (IN) | payer OTHER ==
[~2024-06-28] VITALS: Ht 157.5 cm; Wt 48.0 kg
[~2024-06-28 21:42] MED LIST changes: +AMIT50 PO; +PRAZ5 PO
[2024-06-28] MEDS ORDERED: NS 1,000 ML IV SCH (22:25)
[2024-06-28 22:32] LABS: BASOPHILS ABSOLUTE AUTO 0.02 K/mm3 (0.00-0.23); BASOPHILS PERCENT AUTO 0 % (0-2); EOSINOPHILS PERCENT AUTO 0 % (0-6); Hemoglobin 16.1 g/dL (11.5-16.0); IMMATURE GRAN ABSOLUTE AUTO 0.04 K/mm3 (0.00-0.10); IMMATURE GRAN PERCENT AUTO 0 % (0-1); LYMPHOCYTES ABSOLUTE AUTO 1.99 K/mm3 (0.84-5.20); LYMPHOCYTES PERCENT AUTO 22 % (21-46); MONOCYTES ABSOLUTE AUTO 0.61 K/mm3 (0.16-1.47); MONOCYTES PERCENT AUTO 7 % (4-13); Mean Corpuscular HGB 34.8 pg (26.0-34.0); Mean Corpuscular Volume 99 fL (80-100); Mean Platelet Volume 8.7 fL (9.1-12.4); NEUTROPHILS ABSOLUTE AUTO 6.39 K/mm3 (1.96-9.15); NEUTROPHILS PERCENT AUTO 71 % (41-73); Platelet Count 254 K/mm3 (150-400); RDW Coefficient Variation 14.2 % (11.7-14.2); RDW Standard Deviation 52.2 fL (35.1-46.3); Red Blood Cell Count 4.63 M/mm3 (3.80-5.20); White Blood Cell Count 9.05 K/mm3 (4.00-11.30)
[2024-06-28 22:45] LABS: Alanine Aminotransfer (ALT/SGP 22 U/L (12-78); Albumin, Blood 4.3 g/dL (3.4-5.0); Albumin/Globulin Ratio 1.1 (0.8-1.8); Alk Phos 182 U/L (50-136); Anion Gap 22 mmol/L (3-11); Aspartate Aminotrans (AST/SGOT 39 U/L (12-37); Bilirubin, Total 0.6 mg/dL (0.1-1.0); Blood Urea Nitrogen 11 mg/dL (8-24); Bun/Creatinine Ratio 15.9 (12.0-20.0); CO2, Blood 11 mmol/L (21-32); Calcium, Blood 9.1 mg/dL (8.5-10.1); Chloride, Blood 100 mmol/L (98-108); Creatinine, Blood 0.69 mg/dL (0.40-1.00); Ethanol (Alcohol), Blood, Med <3 mg/dL; Globulin, Blood 3.9 g/dL (2.2-4.0); Glomerular Filtration Rate 102 (60-); Glucose, Blood 115 mg/dL (70-99); Magnesium, Blood 1.6 mg/dL (1.6-2.4); Potassium, Blood 3.9 mmol/L (3.5-5.5); Sodium, Blood 129 mmol/L (136-145); Total Protein, Blood 8.2 g/dL (6.4-8.2)
[2024-06-28 23:46] LABS: Bicarbonate Venous 13.4 mmol/L (24.0-30.0); PCO2 Venous 27 mmHg (38-42); pH Blood Venous 7.21 (7.34-7.37)
[2024-06-28] MEDS ORDERED: Thiamine HCl 100 MG Tab PO ONE (23:50)
[2024-06-28] MEDS ORDERED: Ketorolac Tromethamine 15mg Vial IV ONE (23:55)
[2024-06-28] MEDS ORDERED: D5W-1/2NS KCl 20mEq 1,000 ML IV SCH (23:55)
[2024-06-29] MEDS ORDERED: Ondansetron HCl 2 MG / ML 2ML Vial IV PRN (00:05)
[2024-06-29] MEDS ORDERED: Loperamide HCl 2 MG Cap PO PRN (00:10)
[2024-06-29] MEDS ORDERED: FLU VACC TS2024-25(6MOS UP)/PF 45 MCG/0.5 ML SYRINGE IM ONE ×2 (00:10→05:05)
[2024-06-29 00:24] LABS: Influenza A, PCR NEGATIVE (NEGATIVE); Influenza B, PCR NEGATIVE (NEGATIVE); Resp Syncytial Virus, PCR NEGATIVE (NEGATIVE); SARS-Cov-2 (COVID-19) PCR, MMC NEGATIVE (NEGATIVE)
[2024-06-29] MEDS ORDERED: Sodium Bicarb 8.4% Inj 100 MEQ in Sodium Chloride 0.45% 1,000 ML IV SCH (00:30)
[2024-06-29 00:43] LABS: Source, Urine Clean Catch
[2024-06-29 00:49] LABS: Bilirubin, Urine Neg (Neg); Blood, Urine 2+ (Neg); Glucose Qualitative, Urine Neg (Neg); Ketones, Urine 4+ (Neg); Leukocyte Esterase, Urine Neg (Neg); Nitrite, Urine Neg (Neg); Protein, Urine 2+ (Neg); Urobilinogen, Urine NORM (Normal)
[2024-06-29 01:01] LABS: Appearance, Urine Clear (Clear); Color, Urine Yellow (P-Yellow)
[2024-06-29 01:02] LABS: Bacteria Few /hpf; Red Blood Cells, Urine 0-2 /hpf (0-2); Squamous Epithelial Cells Few /hpf (Few); White Blood Cells, Urine 0-2 /hpf (0-5)
[2024-06-29 01:03] LABS: Hyaline Casts 0-2 /lpf (0-2)
[2024-06-29 01:10] LABS: U Amphetamine Screen Not Detected; U Benzodiazapine Screen DETECTED; U Buprenorphine Screen Not Detected; U Cannabinoids Screen Not Detected; U Cocaine Screen Not Detected; U Methadone Screen Not Detected; U Methamphetamine Screen Not Detected; U Opiates Screen Not Detected; U Oxycodone Screen Not Detected; U Phencyclidine Screen Not Detected
[2024-06-29 01:11] LABS: U Barbituate Screen DETECTED
[2024-06-29 01:30] VITALS: BP 123/78
--- NOTE | 2024-06-29 03:19 | NUR ---
ASSUMPTION OF CARE NOTE @ APPROX 0135 REPORT RECEIVED BY THIS RN FROM ELECTROTYPE CASTER, BEN @ APPROX 0115. PT ARRIVED TO PCU 15 VIA BED, TRANSFERRED SELF FROM ER BED TO PCU BED. SIGNIGICANT OTHER WHO PT REFERS TO AT BEDSIDE, NICOLE "" SAYS THEY ARE NOT LEAGLLY .
[2024-06-29] MEDS ORDERED: Morphine Sulfate 4 MG/1 ML Injection IV PRN (04:00)
[2024-06-29 04:05] VITALS: BP 133/76
[2024-06-29 04:53] LABS: BASOPHILS ABSOLUTE AUTO 0.03 K/mm3 (0.00-0.23); BASOPHILS PERCENT AUTO 0 % (0-2); EOSINOPHILS ABSOLUTE AUTO 0.01 K/mm3 (0.00-0.68); EOSINOPHILS PERCENT AUTO 0 % (0-6); Hematocrit 40.3 % (33.0-51.0); Hemoglobin 13.7 g/dL (11.5-16.0); IMMATURE GRAN ABSOLUTE AUTO 0.03 K/mm3 (0.00-0.10); IMMATURE GRAN PERCENT AUTO 0 % (0-1); LYMPHOCYTES ABSOLUTE AUTO 2.23 K/mm3 (0.84-5.20); LYMPHOCYTES PERCENT AUTO 30 % (21-46); MONOCYTES ABSOLUTE AUTO 0.67 K/mm3 (0.16-1.47); MONOCYTES PERCENT AUTO 9 % (4-13); Mean Corpuscular HGB 34.2 pg (26.0-34.0); Mean Corpuscular Volume 101 fL (80-100); Mean Platelet Volume 8.3 fL (9.1-12.4); NEUTROPHILS PERCENT AUTO 61 % (41-73); Platelet Count 221 K/mm3 (150-400); RDW Standard Deviation 51.2 fL (35.1-46.3); Red Blood Cell Count 4.01 M/mm3 (3.80-5.20); White Blood Cell Count 7.57 K/mm3 (4.00-11.30)
[2024-06-29 05:33] LABS: Albumin, Blood 3.6 g/dL (3.4-5.0); Albumin/Globulin Ratio 1.1 (0.8-1.8); Bilirubin, Total 0.4 mg/dL (0.1-1.0); Bun/Creatinine Ratio 18.3 (12.0-20.0); Calcium, Blood 8.7 mg/dL (8.5-10.1); Creatinine, Blood 0.6 mg/dL (0.40-1.00); Globulin, Blood 3.2 g/dL (2.2-4.0); Potassium, Blood 3.8 mmol/L (3.5-5.5); Total Protein, Blood 6.8 g/dL (6.4-8.2)
--- NOTE | 2024-06-29 06:10 | NUR ---
SHIFT SUMMARY PT IS A&O X4, PT UNABLE TO RECALL HER MEDICATIONS WHEN ASKED BY THIS RN, ABLE TO MAKE NEEDS KNOWN, OBEYS COMMAND, MOVING ALL EXTREMITIES EQUALLY, AMBULATINED SBA TO BRP. SPO2 GREATER THAN 90% ON RA, NO SIGNS OF RESPIRATORY DISTRESS OBSERVED. CONTINUOUS TELE MONITORING, SINUS TACH 110-120 S, BP STABLE WITH MAP GREATER THAN 65, PT DENIES CHEST P/P, PULSES PRESENT T/O. BOWEL TONES PRESENT IN ALL 4Q, PT DENIES FEELINGS OF CONSTIPATION OR FEELINGS OF NAUSEA, PT DOES REPORT VOMITING BUT NOT SINCE COMING TO THE HOSPITAL. PT REPORTING PAIN TO HER HIPS, BACK AND NECK, PT DENIES ANY RECENT FALLS, PT DENIES ANY PAST INJURIES TO BACK AND BACK/ REPORTS THAT SHE HAS ALWAYS HAD A BAD BACK AND NECK , PT REPORTS BREAKING BOTH HIPS AND HAVING THE RIGHT HIP REPLACED IN 2022. SIGNIFICANT OTHER AT BEDSIDE UNTIL APPROX 0530, PT AND FAMILY EDUCATED THAT VITITING HOURS ARE BETWEEN 7AM-7PM. BED LOWEST POSITION, CALL LIGHT IN REACH, AWAITING TO GIVE REPORT TO ONCOMING RN.
[2024-06-29 07:48] VITALS: BP 132/74
[2024-06-29] MEDS ORDERED: Enoxaparin 40 MG/0.4 ML SYR SC SCH (09:00)
[2024-06-29] MEDS ORDERED: Percocet 5-3251 EACH PO (10:13)
[2024-06-29] MEDS ORDERED: Ondansetron Odt8 MG MM (10:14)
[2024-06-29 11:14] VITALS: BP 111/71
[2024-06-29 11:18] LABS: Adenovirus Not Detected (NOT DETECT); Bordetella pertussis Not Detected (NOT DETECT); Chlamydophila pneumoniae Not Detected (NOT DETECT); Coronavirus 229E Not Detected (NOT DETECT); Coronavirus HKU1 Not Detected (NOT DETECT); Coronavirus NL63 Not Detected (NOT DETECT); Coronavirus OC43 Not Detected (NOT DETECT); Human Metapneumovirus Not Detected (NOT DETECT); Human Rhinovirus/Enterovirus Not Detected (NOT DETECT); Influenza A/2009-H1 Not Detected (NOT DETECT); Influenza A/H1 Not Detected (NOT DETECT); Influenza A/H3 Not Detected (NOT DETECT); Influenza B Not Detected (NOT DETECT); Mycoplasma pneumoniae Not Detected (NOT DETECT); Parainfluenza Virus 1 Not Detected (NOT DETECT); Parainfluenza Virus 2 Not Detected (NOT DETECT); Parainfluenza Virus 3 Not Detected (NOT DETECT); Parainfluenza Virus 4 Not Detected (NOT DETECT); Respiratory Syncytial Virus Not Detected (NOT DETECT); SARS-Cov-2 (COVID-19), BioFire Not Detected (NOT DETECT)
[2024-06-29] MEDS ORDERED: Naloxone HCl 0.4MG / ML 1ML Vial IV PRN (12:00)
[2024-06-29] MEDS ORDERED: OxyCODONE 5 mg/Acetamin 325 mg TABLET PO PRN (12:00)
[2024-06-29] MEDS ORDERED: Acetaminophen 325 MG TABLET PO PRN (12:00)
[2024-06-29] MEDS ORDERED: Acetamin/Butalbital/Caffeine Tab PO PRN (12:05)
[2024-06-29] MEDS ORDERED: UBROGEPANT 100 MG PO PRN (12:20)
[2024-06-29] MEDS ORDERED: Metoprolol Succinate 25 MG TABCR PO SCH (13:35)
[2024-06-29 15:50] VITALS: BP 102/65
--- NOTE | 2024-06-29 18:13 | NUR ---
PT SUMMARY; PT FLAT AND WITHDRAWN FEELING UNMOTIVATED FOR THE SHIFT PT ENCOURAGED TO SIT ON THE SIDE OF THE BED FOR MEALS OR UP IN THE CHAIR PT REFUSED, EVEN A BED BATH, ENDED UP GETTING ONE WHEN PT USED BSC. VITALS HRR ST 120-140'S, SBP 110'S, SATS ABOVE 95% ON RA, AFEBRILE. HOME MEDS RECONCILED, DOSE OF METOPROLOL WAS GIVEN HRR TRENDED DOWN TO 110'S. PAIN MEDS PO WAS GIVEN ALONG WITH TYLENOL. PT C/O NECK AND BACK PAIN AND HEAD ACHE. PT REPORTS NOT BEING ABLE TO SLEEP, THOUGH PT WILL DOSE OFF AFTER GETTING PAIN MEDS. PT ALSO HAS POOR APPETITE ATE ABOUT 20% OF BREAKFAST AND DINNER REFUSED LUNCH. PT OFFERED ENSURE FOR DINNER, WAS GIVEN ZOFRAN WELL FOR NAUSEA. SIGNIFICANT OTHER AT THE BEDSIDE RIGHT NOW WAS GIVEN UPDATE REGARDING PT'S STATUS. WILL REPORT O ONCOMING SHIFT
[2024-06-29] MEDS ORDERED: NICO21TP TOP (18:58)
[2024-06-29] MEDS ORDERED: Nicotine 21 MG PATCH TOP SCH (19:45)
[2024-06-29 20:39] VITALS: BP 112/73
[2024-06-29] MEDS ORDERED: Baclofen 10 MG Tab PO SCH (21:00)
[2024-06-29] MEDS ORDERED: ClonazePAM 1 MG Tab PO SCH (21:00)
[2024-06-29] MEDS ORDERED: Prazosin HCL 5 MG Cap PO SCH (21:00)
[2024-06-29] MEDS ORDERED: Atorvastatin 40 MG Tab PO SCH (21:00)
[2024-06-29] MEDS ORDERED: Topiramate 100 MG Tab PO SCH (21:00)
[2024-06-29] MEDS ORDERED: Amitriptyline HCl 50 MG Tab PO SCH (21:00)
[2024-06-30 00:50] VITALS: BP 100/69
[2024-06-30 04:33] VITALS: BP 98/70
[2024-06-30 06:55] LABS: Albumin/Globulin Ratio 1.1 (0.8-1.8); Bilirubin, Total 0.4 mg/dL (0.1-1.0); Bun/Creatinine Ratio 9.2 (12.0-20.0); Creatinine, Blood 0.44 mg/dL (0.40-1.00); Globulin, Blood 2.7 g/dL (2.2-4.0); Potassium, Blood 3.2 mmol/L (3.5-5.5); Total Protein, Blood 5.7 g/dL (6.4-8.2)
--- NOTE | 2024-06-30 07:18 | NUR ---
SHIFT SUMMARY: PT IS A&OX3, FLAT AFFECT AND WITHDRAWN, BUT COOPERATIVE WITH CARE. BP IS STABLE, HR IS TACHY IN THE 110'S AT REST, SATS >93% ON RA, AFEBRILE. ST 100'S -120'S, TACHS UP TO 150'S WITH EXERTION. C/O PAIN 8/10 IN HER NECK AND RIGHT KNEE, MEDICATED WITH PRN PERCOCET. PT C/O DIZZINESS WHEN UP. TOLERATING A REGULAR DIET, NO APPETITE. POOR PO INTAKE. SBA TO BR. VOIDING LARGE AMOUNTS OF LIGHT YELLOW URINE. HAVING LIQUID BROWN STOOLS X3 CONT./INCONTINENT. PULL UP IN PLACE AND CHANGED NEEDED. BED IN LOWEST POSITION, CALL LIGHT WITHIN REACH. CALLS APPROPRIATELY AND IS ABLE TO ADVOCATE NEEDS EFFECTIVELY.
[2024-06-30 08:30] VITALS: BP 96/64
[2024-06-30] MEDS ORDERED: Sertraline HCl 100 MG Tab PO SCH (09:00)
[2024-06-30] MEDS ORDERED: Omeprazole 20 MG CapCR PO SCH (09:00)
[2024-06-30] MEDS ORDERED: Metoprolol Succinate 25 MG TABCR PO SCH ×2 (09:00→21:00)
[2024-06-30] MEDS ORDERED: NS 250 ML IV PRN (09:25)
[2024-06-30] MEDS ORDERED: Potassium Chloride 40 MEQ in NS 250 ML IV ONE (09:25)
[2024-06-30] MEDS ORDERED: OxyCODONE 5 mg/Acetamin 325 mg TABLET PO PRN (10:59)
[2024-06-30] MEDS ORDERED: Metoprolol Tartrate 25 MG Tab PO ONE (11:00)
[2024-06-30 11:03] VITALS: BP 112/87
[2024-06-30] MEDS ORDERED: Calcium Carbonate 500 MG Tab Chew PO PRN (11:05)
[2024-06-30 17:00] VITALS: BP 110/74
--- NOTE | 2024-06-30 18:11 | NUR ---
SHIFT SUMMARY PT REMAINS ALERT AND ORIENTED, BUT FLAT AFFECT THIS SHIFT. BP STABLE. HR SINUS TACH AT BEGINNING OF SHIFT AND HR HAS TRENDED DOWN TO 90'S. O2 SATS REMAIN ABOVE 90% ON RA. PT COMPLAINED OF CHRONIC PAIN TO NECK, BACK AND KNEE. PT MEDICATED NEEDED FOR PAIN AND REPOSITIONED. PT UP TO THE BATHROOM NEEDED WITH SBA. PT REPORTS APPETITE HAS IMPROVED TODAY. SPOUSE AT BEDSIDE THIS EVENING. WILL REPORT OFF TO ONCOMING RN
[2024-06-30 20:25] VITALS: BP 126/89
[2024-07-01 00:11] VITALS: BP 116/83
[2024-07-01 04:18] VITALS: BP 114/83
[2024-07-01 05:54] LABS: Beta-hydroxybutyrate 0.6 mg/dL (0.2-2.8); Bun/Creatinine Ratio 15.9 (12.0-20.0); Calcium, Blood 8.4 mg/dL (8.5-10.1); Creatinine, Blood 0.44 mg/dL (0.40-1.00); Potassium, Blood 3.6 mmol/L (3.5-5.5)
--- NOTE | 2024-07-01 06:51 | NUR ---
SHIFT SUMMARY: PT IS A&OX3, FLAT AFFECT AND WITHDRAWN, BUT COOPERATIVE WITH CARE. BP IS STABLE, HR IS TACHY IN THE 100'S AT REST, SATS >93% ON RA, AFEBRILE. ST 100'S -120'S, WITH EXERTION. C/O PAIN 8/10 IN HER NECK AND RIGHT KNEE, MEDICATED WITH PRN PERCOCET. TOLERATING A REGULAR DIET. SBA TO BR. VOIDING LARGE AMOUNTS OF LIGHT YELLOW URINE. SMALL, FORMED BROWN BM X1 THIS SHIFT. PULL UP IN PLACE AND CHANGED NEEDED. PT REQUESTING IMODIUM. BED IN LOWEST POSITION, CALL LIGHT WITHIN REACH. CALLS APPROPRIATELY AND IS ABLE TO ADVOCATE NEEDS EFFECTIVELY.
[2024-07-01 07:31] VITALS: BP 116/84
--- NOTE | 2024-07-01 07:33 | NUR ---
assumption note: this rn to assume care of patient. patient sitting up in bed watching tv. denied chest pain/pressure or feeling sob. no nausea/vomitting. vital signs stable. patient has call light within reach and bed in lowest position. stating nothing is needed at this time.
--- NOTE | 2024-07-01 10:14 | NUR ---
MD TO BEDSIDE: MD GRANADOS AT BEDSIDE AND PATIENT AWARE SHE WILL BE DISCHARGING TODAY. PATIENT REQUESTED TO REST BEFORE DISCHARGING.
[2024-07-01] MEDS ORDERED: Calcium Carbon500 MG PO (12:05)
[2024-07-01 12:45] VITALS: BP 177/88
--- NOTE | 2024-07-01 13:29 | NUR ---
discharge note: this rn went over discharge information with patient and aware to follow up with primary care provider within 1 week and eat high protein foods while at home.patient new medications sent to [facility] as patient asked. patient significant other neva was her ride. she was wheeled out via wheel chair, iv's & tele removed.
== END 2024-07-01 14:06 | disposition home or self-care (01) | DRG 923 ==
LOC: ER 21:42 → PCU 21:43 → ERHOLD 21:43 → PCU 06-29 01:30
PROVIDERS: Emergency Medicine; Internal Medicine; Student in an Organized Health Care Education/Training Program; ADMIT Internal Medicine
DX: T73.0XXA Starvation, initial encounter (principal); E87.20 Acidosis, unspecified; E87.1 Hypo-osmolality and hyponatremia; Z96.641 Presence of right artificial hip joint; B34.9 Viral infection, unspecified; I25.10 Atherosclerotic heart disease of native coronary artery without angina pectoris; G43.909 Migraine, unspecified, not intractable, without status migrainosus; R55 Syncope and collapse; F32.A Depression, unspecified; F41.9 Anxiety disorder, unspecified; K58.9 Irritable bowel syndrome, unspecified; I10 Essential (primary) hypertension; F17.210 Nicotine dependence, cigarettes, uncomplicated; E87.6 Hypokalemia; E78.5 Hyperlipidemia, unspecified; F43.10 Post-traumatic stress disorder, unspecified; R00.0 Tachycardia, unspecified; Z88.8 Allergy status to other drugs, medicaments and biological substances; Z98.51 Tubal ligation status; Z87.81 Personal history of (healed) traumatic fracture; Z79.02 Long term (current) use of antithrombotics/antiplatelets; I25.2 Old myocardial infarction; Z79.899 Other long term (current) drug therapy
CPT/HCPCS: 0202U; 0241U; 36415; 80048; 80053; 80320; 81001; 82010; 82803; 83605; 83735; 83880; 84484; 85025; 90656; 93005; 93010; 96365; 96375; 99285-25; A9270; G0378; J1650; J1885; J2270; J2405; J3480; J7030; J7050

== ENCOUNTER 2024-08-24 20:15 | Emergency (ER) | payer OTHER ==
[~2024-08-24] VITALS: Ht 157.5 cm; Wt 49.9 kg
[~2024-08-24 20:15] MED LIST changes: +Calcium Carbon500 MG PO
[2024-08-24 20:30] VITALS: BP 115/84
[2024-08-24 21:24] LABS: BASOPHILS ABSOLUTE AUTO 0.03 K/mm3 (0.00-0.23); BASOPHILS PERCENT AUTO 0 % (0-2); EOSINOPHILS ABSOLUTE AUTO 0.03 K/mm3 (0.00-0.68); EOSINOPHILS PERCENT AUTO 0 % (0-6); Hematocrit 43.1 % (33.0-51.0); Hemoglobin 15.3 g/dL (11.5-16.0); IMMATURE GRAN ABSOLUTE AUTO 0.02 K/mm3 (0.00-0.10); IMMATURE GRAN PERCENT AUTO 0 % (0-1); LYMPHOCYTES ABSOLUTE AUTO 2.27 K/mm3 (0.84-5.20); LYMPHOCYTES PERCENT AUTO 19 % (21-46); MONOCYTES ABSOLUTE AUTO 0.81 K/mm3 (0.16-1.47); MONOCYTES PERCENT AUTO 7 % (4-13); Mean Corpuscular HGB Conc 35.5 g/dL (31.5-36.5); Mean Corpuscular Volume 99 fL (80-100); Mean Platelet Volume 8.8 fL (9.1-12.4); NEUTROPHILS ABSOLUTE AUTO 8.78 K/mm3 (1.96-9.15); NEUTROPHILS PERCENT AUTO 73 % (41-73); Platelet Count 221 K/mm3 (150-400); RDW Coefficient Variation 14.4 % (11.7-14.2); RDW Standard Deviation 52.1 fL (35.1-46.3); Red Blood Cell Count 4.37 M/mm3 (3.80-5.20); White Blood Cell Count 11.94 K/mm3 (4.00-11.30)
[2024-08-24 21:38] LABS: Albumin, Blood 3.8 g/dL (3.4-5.0); Albumin/Globulin Ratio 1.1 (0.8-1.8); Bilirubin, Total 0.5 mg/dL (0.1-1.0); Creatinine, Blood 0.45 mg/dL (0.40-1.00); Globulin, Blood 3.4 g/dL (2.2-4.0); Potassium, Blood 3.6 mmol/L (3.5-5.5); Total Protein, Blood 7.2 g/dL (6.4-8.2)
[2024-08-24] MEDS ORDERED: Lactated Ringer's 1,000 ML IV ONE (22:45)
== END 2024-08-25 00:10 | disposition home or self-care (01) ==
LOC: ER 20:15
PROVIDERS: Emergency Medicine
DX: S09.90XA Unspecified injury of head, initial encounter (principal); R05.3 Chronic cough; W19.XXXA Unspecified fall, initial encounter; Z88.8 Allergy status to other drugs, medicaments and biological substances; Z79.899 Other long term (current) drug therapy
CPT/HCPCS: 71046; 80053; 85025; 93005; 93010; 99285-25; J7120

== ENCOUNTER → 2024-12-24 | Outpatient (CLI) | payer OTHER ==
[~2024-12-24] MED LIST changes: +AMOCLA875 PO; +BACL10 PO; -BACL20 PO; +VISBIOME 112.51 EACH PO
== END ==
LOC: LAB SHORT 16:30 → LAB 16:30
DX: N39.0 Urinary tract infection, site not specified (principal)
CPT/HCPCS: 87077; 87086; 87186

== ENCOUNTER 2024-12-28 21:36 | Observation (INO) | payer OTHER ==
[~2024-12-28] VITALS: Ht 160 cm; Wt 48.4 kg
[~2024-12-28 21:36] MED LIST changes: -AMOCLA875 PO; -VISBIOME 112.51 EACH PO
[2024-12-28 22:24] LABS: BASOPHILS ABSOLUTE AUTO 0.01 K/mm3 (0.00-0.23); BASOPHILS PERCENT AUTO 0 % (0-2); EOSINOPHILS ABSOLUTE AUTO 0.16 K/mm3 (0.00-0.68); EOSINOPHILS PERCENT AUTO 2 % (0-6); Hematocrit 37.1 % (33.0-51.0); Hemoglobin 12.6 g/dL (11.5-16.0); IMMATURE GRAN ABSOLUTE AUTO 0.05 K/mm3 (0.00-0.10); IMMATURE GRAN PERCENT AUTO 1 % (0-1); LYMPHOCYTES ABSOLUTE AUTO 0.55 K/mm3 (0.84-5.20); LYMPHOCYTES PERCENT AUTO 6 % (21-46); MONOCYTES ABSOLUTE AUTO 0.68 K/mm3 (0.16-1.47); MONOCYTES PERCENT AUTO 7 % (4-13); Mean Corpuscular HGB Conc 34.0 g/dL (31.5-36.5); Mean Corpuscular Volume 100 fL (80-100); NEUTROPHILS ABSOLUTE AUTO 7.95 K/mm3 (1.96-9.15); NEUTROPHILS PERCENT AUTO 85 % (41-73); NRBC ABSOLUTE 0.00 K/mm3 (0.00-0.02); NRBC Auto 0.0 /100 WBC (0.0-0.2); Platelet Count 207 K/mm3 (150-400); RDW Coefficient Variation 14.1 % (11.7-14.2); RDW Standard Deviation 51.4 fL (35.1-46.3)
[2024-12-28] MEDS ORDERED: HYDROcodone 5-APAP 325 TAB PO ONE (22:35)
[2024-12-28 22:43] LABS: Alanine Aminotransfer (ALT/SGP 80 U/L (12-78); Albumin, Blood 2.8 g/dL (3.4-5.0); Albumin/Globulin Ratio 0.7 (0.8-1.8); Anion Gap 12 mmol/L (3-11); Aspartate Aminotrans (AST/SGOT 68 U/L (12-37); Bilirubin, Total 0.5 mg/dL (0.1-1.0); Blood Urea Nitrogen 15 mg/dL (8-24); CO2, Blood 19 mmol/L (21-32); Calcium, Blood 9.1 mg/dL (8.5-10.1); Chloride, Blood 109 mmol/L (98-108); Creatinine, Blood 0.64 mg/dL (0.40-1.00); Globulin, Blood 4.0 g/dL (2.2-4.0); Glucose, Blood 109 mg/dL (70-99); Magnesium, Blood 1.7 mg/dL (1.6-2.4); Potassium, Blood 3.6 mmol/L (3.5-5.5); Sodium, Blood 136 mmol/L (136-145); Total Protein, Blood 6.8 g/dL (6.4-8.2)
[2024-12-28 23:07] LABS: Source, Urine Clean Catch
[2024-12-28 23:12] LABS: Bilirubin, Urine Neg (Neg); Glucose Qualitative, Urine Neg (Neg); Ketones, Urine Neg (Neg); Leukocyte Esterase, Urine Neg (Neg); Protein, Urine 2+ (Neg); Specific Gravity, Urine 1.010 (1.003-1.022); Urobilinogen, Urine NORM (Normal)
[2024-12-28 23:17] LABS: Color, Urine Yellow (P-Yellow)
[2024-12-28 23:18] LABS: White Blood Cells, Urine 0-2 /hpf (0-5)
[2024-12-28 23:25] LABS: Ethanol (Alcohol), Blood, Med <3 mg/dL
[2024-12-29 00:11] LABS: Influenza A, PCR NEGATIVE (NEGATIVE); Influenza B, PCR NEGATIVE (NEGATIVE); Resp Syncytial Virus, PCR NEGATIVE (NEGATIVE); SARS-Cov-2 (COVID-19) PCR, MMC NEGATIVE (NEGATIVE)
[2024-12-29] MEDS ORDERED: NS 1,000 ML IV SCH (01:40)
[2024-12-29] MEDS ORDERED: CefTRIAXone Sodium 1,000 MG in NS 100 ML IV ONE (01:45)
[2024-12-29] MEDS ORDERED: HYDROcodone 5-APAP 325 TAB PO PRN (04:25)
[2024-12-29] MEDS ORDERED: Ondansetron HCl 2 MG / ML 2ML Vial IV PRN (04:25)
[2024-12-29] MEDS ORDERED: Ketorolac Tromethamine 15mg Vial IV PRN (04:40)
[2024-12-29 05:20] LABS: U Amphetamine Screen Not Detected; U Barbituate Screen DETECTED; U Benzodiazapine Screen DETECTED; U Methamphetamine Screen Not Detected
[2024-12-29 05:21] LABS: U Buprenorphine Screen Not Detected; U Cannabinoids Screen Not Detected; U Cocaine Screen Not Detected; U Methadone Screen Not Detected; U Opiates Screen DETECTED; U Oxycodone Screen Not Detected; U Phencyclidine Screen Not Detected
--- NOTE | 2024-12-29 05:41 | NUR ---
TOOK REPORT FROM ED ALISHA ZEE
[2024-12-29 05:59] VITALS: BP 147/91
[2024-12-29 06:56] LABS: Alanine Aminotransfer (ALT/SGP 69.0 U/L (12-78); Albumin, Blood 2.6 g/dL (3.4-5.0); Albumin/Globulin Ratio 0.7 (0.8-1.8); Anion Gap 5.0 mmol/L (3-11); Aspartate Aminotrans (AST/SGOT 69.0 U/L (12-37); Bilirubin, Total 0.4 mg/dL (0.1-1.0); Blood Urea Nitrogen 10.0 mg/dL (8-24); CO2, Blood 24.0 mmol/L (21-32); Calcium, Blood 8.7 mg/dL (8.5-10.1); Chloride, Blood 112.0 mmol/L (98-108); Creatinine, Blood 0.47 mg/dL (0.40-1.00); Globulin, Blood 3.6 g/dL (2.2-4.0); Glucose, Blood 91.0 mg/dL (70-99); Potassium, Blood 3.3 mmol/L (3.5-5.5); Sodium, Blood 138.0 mmol/L (136-145); Total Protein, Blood 6.2 g/dL (6.4-8.2)
[2024-12-29 07:21] VITALS: BP 147/99
[2024-12-29] MEDS ORDERED: Misc. Tablet PO PRN (08:35)
[2024-12-29] MEDS ORDERED: NS 250 ML IV PRN (09:00)
[2024-12-29] MEDS ORDERED: MELO7.5 PO (09:31)
[2024-12-29] MEDS ORDERED: OxyCODONE 5 mg/Acetamin 325 mg TABLET PO PRN (10:30)
[2024-12-29 16:15] VITALS: BP 159/101
[2024-12-29 19:14] VITALS: BP 123/75
--- NOTE | 2024-12-29 19:46 | NUR ---
SHIFT SUMMARY PT NOTEDT TO BE A&OX4 AND ASSIST X1 TO BSC WITH GENEREAL WEAKNESS NOTED TO BLE AT START OF SHIFT. PROVIDER ROUNDED ON PT AND STATED HE BELIEVED IT WAS CAUSED BY DEHYDRATION AND STARTED PT BACK ON ALL HOME MEDICATION. PT NOTED TO WORK WITH THERAPY THIS SHIFT. AROUND 1300 PT LAC IV NOTED TO INFILTRATE FLUIDS AND K+ REPLACEMENT STOPPED AND PROVIDER NOTIFIED AND ORDERS RECIEVED FOR NO IV ACCESS TO JUST PUSH PO FLUIDS. AND ADDED PO K+ D/T PT ONLY RECEIVED 1/2 OF IV ORDER. PT WEAKNESS NOTED TO IMPROVE THROUGHOUT THE DAY WITH INCREASE IN FLUIDS. PLAN IS TO POSSIBLE DC HOME TOMORROW.
--- NOTE | 2024-12-30 03:52 | NUR ---
SUMMARY: PT A/OX4, CALLS APPROPRIATELY TO SPECIFY NEEDS AND IS PLEASANT AND COOPERATIVE W/CARE. SHE'S UP W/1PA AND FWW TO TOILET. PT PROVIDED PRN IMMODIUM FOR LOOSE STOOL R/T "IBS" PER REQUEST. FRANSISCA (DATABASE SECURITY ADMINISTRATOR) WAS ALSO NOTIFIED OF C/O MUSCLE SPASMS AND TAKING BACLOFEN 20MG BID AT HOME. X1 DOSE WAS RX'D AND RECEIVED FOR TOLERABLE EFFECT. PT WAS ALSO GIVEN PRN PERCOCET, FIORICET AND SCHEDULED TOPAMAX FOR RELIEF OF MIGRAINE PARNELL, BACK, HIP AND KNEE PAIN. PO FLUIDS CONTINUE TO BE ENCOURAGED AND GEN.WEAKNESS IS GRADUALLY IMPROVING. NO ACUTE CHANGES, VSS/AFEBRILE. POSSIBLE D/C TODAY. WILL REPORT TO DAY RN.
[2024-12-30 04:53] VITALS: BP 127/75
[2024-12-30 05:36] LABS: Anion Gap 10.0 mmol/L (3-11); Blood Urea Nitrogen 9.0 mg/dL (8-24); CO2, Blood 22.0 mmol/L (21-32); Calcium, Blood 8.7 mg/dL (8.5-10.1); Chloride, Blood 113.0 mmol/L (98-108); Creatinine, Blood 0.48 mg/dL (0.40-1.00); Glucose, Blood 91.0 mg/dL (70-99); Potassium, Blood 3.7 mmol/L (3.5-5.5); Sodium, Blood 141.0 mmol/L (136-145)
[2024-12-30 07:23] VITALS: BP 126/89
[2024-12-30] MEDS ORDERED: AMOCLA875 PO (14:45)
[2024-12-30] MEDS ORDERED: VISBIOME 112.51 EACH PO (14:45)
[2024-12-30 15:02] VITALS: BP 113/82
--- NOTE | 2024-12-30 17:12 | NUR ---
SHIFT SUMMARY PATIENT ALERT AND INTERACTIVE THROUGHOUT THE DAY. PATIENT AMBULATING WITH FRONT WHEELED WALKER INDEPENDENTLY. PATIENT DISCHARGED HOME VIA [facility] WHEEL CHAIR VAN. DISCHARGE PAPERWORK REVIEWED AND PLACED IN DISCHARGE FOLDER.
[2024-12-31 10:04] LABS: HEPATITIS A ANTIBODY, IGM Negative (Negative); HEPATITIS C AB CIA INTERP Negative (Negative); HEPATITIS C ANTIBODY CIA INDEX 0.02 IV
== END 2024-12-30 16:50 | disposition home health service (06) ==
LOC: ER 21:36 → BC 21:37 → MEDS 21:37
PROVIDERS: Emergency Medicine; Internal Medicine; ADMIT Student in an Organized Health Care Education/Training Program
DX: R53.1 Weakness (principal); G92.8 Other toxic encephalopathy; I95.1 Orthostatic hypotension; J18.9 Pneumonia, unspecified organism; I25.10 Atherosclerotic heart disease of native coronary artery without angina pectoris; I25.2 Old myocardial infarction; K58.9 Irritable bowel syndrome, unspecified; I10 Essential (primary) hypertension; E78.5 Hyperlipidemia, unspecified; G43.909 Migraine, unspecified, not intractable, without status migrainosus; F17.210 Nicotine dependence, cigarettes, uncomplicated; Z95.5 Presence of coronary angioplasty implant and graft; Z79.899 Other long term (current) drug therapy; Z88.8 Allergy status to other drugs, medicaments and biological substances
CPT/HCPCS: 36415; 70450; 71045; 74177; 76705; 80048; 80053; 80074; 80320; 81001; 82010; 82947; 83605; 83735; 84484; 85025; 87040; 87637; 93005; 93010; 96361; 96365; 96375; 96376; 97110; 97116; 97162; 97165; 97530; 97535; 99285-25; A9270; G0378; J0696; J3480; J7030; J7050; J7120; Q9967